=== PATIENT | male | born 1980 | race Hispanic/Latino ===

== ENCOUNTER 2017-09-20 13:25 | Emergency (ER) | payer OTHER ==
[2017-09-20 14:11] LABS: Absolute Lymphocytes (CBC) 1.1 K/uL (0.7-4.9); Absolute Monocytes 0.7 K/uL (0.1-1.3); Absolute Neutrophil 5.5 K/uL (1.8-8.0); Basophils % 0.6 % (0-1.3); Eosinophils % 0.3 % (0-4.4); Hematocrit 49.3 % (39.6-49.0); Lymphocytes % 15.2 % (15.3-44.8); MCH 31.8 pg (27.0-35.0); MCV 93.4 fL (80-100); MPV 10.7 fL (7.6-11.3); Monocytes % 8.9 % (3.3-12.3); RBC Red Blood Cell Count 5.27 M/uL (4.33-5.43)
[2017-09-20] MEDS ORDERED: ONDANSETRON 4 MG/2 ML VIAL ONE (14:16)
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
[2017-09-20 14:22] LABS: Protime INR 1.17
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
[2017-09-20] MEDS ORDERED: LIDOCAINE 2% MPF 5 ML VIAL ONE (14:38)
[2017-09-20 14:49] LABS: ALT/SGPT 43 U/L (12-78); AST/SGOT 68 U/L (15-37); Alkaline Phosphatase 69 U/L (45-117); BUN Blood Urea Nitrogen 20 mg/dL (7-18); Bicarbonate 25 mmol/L (21-32); Bilirubin Direct 0.4 mg/dL (0-0.2); Glucose Level 74 mg/dL (74-106); Potassium 3.7 mmol/L (3.5-5.1); Protein, Total 8.4 g/dL (6.4-8.2); Sodium Level 140 mmol/L (136-145)
[2017-09-20 14:54] LABS: Alcohol Serum/Plasma < 3 mg/dL (0-3)
[2017-09-20 15:34] LABS: Barbiturates NEGATIVE (NEGATIVE); Benzodiazepines NEGATIVE (NEGATIVE); Cocaine NEGATIVE (NEGATIVE); METHAMPHETAM POSITIVE (NEGATIVE); Methadone NEGATIVE (NEGATIVE); Opiates NEGATIVE (NEGATIVE); Phencyclidine NEGATIVE (NEGATIVE); THC Cannibis NEGATIVE (NEGATIVE)
[2017-09-20 15:50] LABS: Urine Blood TRACE (NEG); Urine Glucose NEGATIVE (NEG); Urine Protein 2+ (NEG); Urine Specific Gravity >1.030 (1.005-1.030); Urine pH 5.5 (5.0-7.0)
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
[2017-09-20 17:26] VITALS: TEMP 98.4
[2017-09-20 17:31] VITALS: BP 121/78; O2SAT 99
--- NOTE | 2017-09-21 07:12 | EKG ---
Test Date: 2017-09-20 Test Time: 14:17:03 [employer]: DK MEASUREMENT RESULTS: Intervals: Rate: 60 NC: 146 QRSD: 110 QT: 430 QTc: 430 [place]: P: 80 NC: 146 QRS: 94 T: 54 INTERPRETIVE STATEMENTS: Normal sinus rhythm Rightward axis Borderline ECG Compared to ECG 02/17/2017 14:14:36 No significant changes Electronically Signed On 09-21-17 07:11:46 CDT by Anthony Anders
== END 2017-09-20 17:21 ==
LOC: ER 13:25
PROC: 0JQ10ZZ Repair Face Subcutaneous Tissue and Fascia, Open Approach (ICD-10-PCS; principal; 2017-09-20)
DX: S01.81XA Laceration without foreign body of other part of head, initial encounter (principal); S02.2XXA Fracture of nasal bones, initial encounter for closed fracture; V47.5XXA Car driver injured in collision with fixed or stationary object in traffic accident, initial encounter; F17.210 Nicotine dependence, cigarettes, uncomplicated
CPT/HCPCS: 12015; 36415; 70450; 70486; 71260; 72125; 73620; 74177; 76377; 80048; 80076; 80307 ×8; 80320; 80329 ×2; 81003; 85025; 85610; 85730; 86850; 86900; 86901; 93005; 96374; 99285; J2405; Q9967

== ENCOUNTER 2017-10-16 11:01 | Emergency (ER) | payer OTHER ==
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
[2017-10-16 13:22] VITALS: BP 107/74; TEMP 97.9; O2SAT 99
== END 2017-10-16 13:18 | disposition left against medical advice (07) ==
LOC: ER 11:01
DX: Z53.21 Procedure and treatment not carried out due to patient leaving prior to being seen by health care provider (principal)
CPT/HCPCS: 99281

== ENCOUNTER 2017-12-11 08:44 | Emergency (ER) | payer SELFPAY ==
[2017-12-11] MEDS ORDERED: NA CHLORIDE 0.9% 1,000 ML ONE (09:12)
[2017-12-11] MEDS ORDERED: ONDANSETRON 4 MG/2 ML VIAL ONE (09:12)
[2017-12-11 09:38] LABS: Potassium 4.6 mmol/L (3.5-5.1)
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
--- NOTE | 2017-12-11 10:11 | ER ---
Nurse's Notes [facility] Name: Cholo Salcido Jr Age: 37 yrs Sex: Male : 1980 Arrival Date: 12/11/2017 Time: 08:46 Bed 17 Private MD: None, None Diagnosis: Nausea Presentation: 12/11 08:54 Presenting complaint: Ate food out of the trash 2 nights ago, c/o severe nausea, upper hb abdominal cramping, and V/D. Tolerating liquids. Transition of care: patient was not received from another setting of care. Onset of symptoms was December 09, 2017. Risk Assessment: Do you want to hurt yourself or someone else? Patient reports no desire to harm self or others. Care prior to arrival: None. 08:54 Method Of Arrival: Ambulatory hb 08:54 Acuity: BAM 3 hb 09:35 Initial Sepsis Screen: Does the patient meet any 2 criteria? No. Patient's initial tw2 sepsis screen is negative. Does the patient have a suspected source of infection? No. Patient's initial sepsis screen is negative. Historical: - Allergies: 08:56 No Known Allergies; hb - Home Meds: 08:56 None [Active]; hb - PMHx: 08:56 Anxiety; Pneumonia; Schizophrenia; Seizures; resolved now; synthetic marajuana; states hb no longer uses; - PSHx: 08:56 None; hb - Immunization history:: Adult Immunizations up to date. - Social history:: Smoking status: Patient/guardian denies using tobacco. - Ebola Screening: : No symptoms or risks identified at this time. - Family history:: not pertinent. - Hospitalizations: : No recent hospitalization is reported. Screenin:34 Abuse screen: Denies threats or abuse. Nutritional screening: No deficits noted. tw2 Tuberculosis screening: No symptoms or risk factors identified. Fall Risk None identified. Assessment: 08:52 General: Appears in no apparent distress. unkempt, Behavior is calm, cooperative, tw2 appropriate for age. Pain: Denies pain. Neuro: Level of Consciousness is awake, alert, obeys commands, Oriented to person, place, time, situation. Cardiovascular: Denies chest pain, shortness of breath, Heart tones S1 S2 Capillary refill < 3 seconds Patient's skin is warm and dry. Respiratory: Airway is patent Respiratory effort is even, labored, Breath sounds are clear bilaterally. GI: Abdomen is flat, Bowel sounds present X 4 quads. Reports nausea. : No signs and/or symptoms were reported regarding the genitourinary system. EENT: No signs and/or symptoms were reported regarding the EENT system. Derm: No signs and/or symptoms reported regarding the dermatologic system. Musculoskeletal: Circulation, motion, and sensation intact. Range of motion: intact in all extremities. 09:46 Reassessment: Patient appears in no apparent distress at this time. No changes from tw2 previously documented assessment. Patient and/or family updated on plan of care and expected duration. Pain level reassessed. Patient is alert, oriented x 3, equal unlabored respirations, skin warm/dry/pink. 10:15 Reassessment: Patient finishing IV fluids prior to discharge. aj1 10:52 Reassessment: IV fluids still infusing. Instructed patient to keep his arm straight to aj1 allow fluids to finish infusing. Vital Signs: 08:56 BP 112 / 77; Pulse 58; Resp 16; Temp 97.8; Pulse Ox 100% on R/A; Pain 8/10; hb 09:46 BP 113 / 80; Pulse 66; Resp 17; Pulse Ox 100% on R/A; tw2 ED Course: 08:46 Patient arrived in ED. sb2 08:46 None, None is Private Physician. sb2 08:49 Danny Chacon MD is Attending Physician. rn 08:50 Bed in low position. Call light in reach. Pulse ox on. NIBP on. tw2 08:52 Oralia Oliveira RN is Primary Nurse. tw2 08:55 Triage completed. hb 08:56 Arm band placed on right wrist. hb 09:11 Inserted saline lock: 20 gauge in right antecubital area, using aseptic technique. mw2 Blood collected. 09:50 Report given to SAMANTA Herron. tw2 11:11 No provider procedures requiring assistance completed. IV discontinued, intact, hb bleeding controlled, No redness/swelling at site. Pressure dressing applied. Administered Medications: 09:21 Drug: Zofran 4 mg Route: IVP; Site: right antecubital; tw2 09:40 Follow up: Response: No adverse reaction tw2 09:21 Drug: NS 0.9% 1000 ml Route: IV; Rate: 1000 ml; Site: right antecubital; tw2 Outcome: 10:11 Discharge ordered by . rn 11:11 Discharged to home ambulatory. 11:11 Condition: stable 11:11 Discharge instructions given to patient, Instructed on discharge instructions, follow up and referral plans. medication usage, Demonstrated understanding of instructions, follow-up care, medications, Prescriptions given X 1. 11:11 Patient left the ED. Signatures: Lesley Amos RN RN aj1 Danny Chacon MD MD rn Baxter, Heather, RN RN Oralia Oliveira RN RN tw2 Lorie Davis 2 Tarun Tyler mw2
[2017-12-11 11:17] VITALS: TEMP 97.8; O2SAT 100
[2017-12-11 11:18] VITALS: BP 113/80
== END 2017-12-11 11:11 | disposition home or self-care (01) ==
LOC: ER 08:44
DX: R11.0 Nausea (principal)
CPT/HCPCS: 36415; 80048; 82550; 96374; 99284; J2405; J7030

== ENCOUNTER 2017-12-17 23:25 | Emergency (ER) | payer SELFPAY ==
[2017-12-18] MEDS ORDERED: LORazepam 2 MG/ML VIAL ONE (00:54)
[2017-12-18] MEDS ORDERED: NA CHLORIDE 0.9% 1,000 ML ONE (00:54)
[2017-12-18 01:22] LABS: Absolute Monocytes 1.1 K/uL (0.1-1.3); Absolute Neutrophil 5.7 K/uL (1.8-8.0); Basophils % 0.4 % (0-1.3); Hematocrit 49.1 % (39.6-49.0); Lymphocytes % 22.3 % (15.3-44.8); MCH 31.8 pg (27.0-35.0); MCV 92.6 fL (80-100); MPV 9.8 fL (7.6-11.3); Monocytes % 12.1 % (3.3-12.3); RBC Red Blood Cell Count 5.31 M/uL (4.33-5.43)
[2017-12-18 01:34] LABS: Albumin 4.8 g/dL (3.4-5.0); Bilirubin Direct 0.5 mg/dL (0-0.2); Bilirubin Total 2.3 mg/dL (0.2-1.0); Potassium 3.8 mmol/L (3.5-5.1); Protein, Total 8.7 g/dL (6.4-8.2)
--- NOTE | 2017-12-18 05:00 | EDPHYS ---
Physician Documentation [facility] Name: Cholo Salcido Jr Age: 37 yrs Sex: Male : 1980 Arrival Date: 12/17/2017 Time: 23:26 Bed 26 Private MD: ED Physician Arsalan Orta HPI: 12/18 01:29 This 37 yrs old Male presents to ER via Ambulatory with complaints of Pain All wa Over. 01:29 [address] has been using street drugs the last 2 days and has pain all over. Onset: The wa symptoms/episode began/occurred today. Severity of symptoms: At their worst the symptoms were moderate in the emergency department the symptoms are unchanged. The patient has experienced similar episodes in the past. The patient has not recently seen a physician. denies SI or HI. Historical: - Allergies: 12/17 23:48 No Known Allergies; kr2 - Home Meds: 23:48 Zofran Oral [Active]; kr2 - PMHx: 23:48 Anxiety; Pneumonia; Schizophrenia; Seizures; resolved now; synthetic marajuana; states kr2 no longer uses; - PSHx: 23:48 None; kr2 - Immunization history:: Adult Immunizations unknown. - Social history:: Smoking status: Patient uses tobacco products, smokes one pack cigarettes per day. - Ebola Screening: : No symptoms or risks identified at this time. - Family history:: not pertinent. - Hospitalizations: : No recent hospitalization is reported. ROS: 12/18 01:30 Eyes: Negative for injury, pain, redness, and discharge. wa ENT: Negative for injury, pain, and discharge, Neck: Negative for injury, pain, and swelling, Cardiovascular: Negative for chest pain, palpitations, and edema, Respiratory: Negative for shortness of breath, cough, wheezing, and pleuritic chest pain, Abdomen/GI: Negative for abdominal pain, nausea, vomiting, diarrhea, and constipation, Back: Negative for injury and pain, : Negative for injury, bleeding, discharge, and swelling, Skin: Negative for injury, rash, and discoloration, Neuro: Negative for headache, weakness, numbness, tingling, and seizure. Constitutional: Positive for body aches, Negative for fever, weight loss. MS/extremity: Positive for pain, all over, Negative for rash, swelling, tenderness. All other systems are negative. Exam: 01:31 Constitutional: This is a well developed, well nourished patient who is awake, alert, wa and in no acute distress. Head/Face: Normocephalic, atraumatic. Eyes: Pupils equal round and reactive to light, extra-ocular motions intact. Lids and lashes normal. Conjunctiva and sclera are non-icteric and not injected. Cornea within normal limits. Periorbital areas with no swelling, redness, or edema. ENT: Nares patent. No nasal discharge, no septal abnormalities noted. Tympanic membranes are normal and external auditory canals are clear. Oropharynx with no redness, swelling, or masses, exudates, or evidence of obstruction, uvula midline. Mucous membranes moist. Neck: Trachea midline, no thyromegaly or masses palpated, and no cervical lymphadenopathy. Supple, full range of motion without nuchal rigidity, or vertebral point tenderness. No Meningismus. Chest/axilla: Normal chest wall appearance and motion. Nontender with no deformity. No lesions are appreciated. Cardiovascular: Regular rate and rhythm with a normal S1 and S2. No gallops, murmurs, or rubs. Normal PMI, no JVD. No pulse deficits. Respiratory: Lungs have equal breath sounds bilaterally, clear to auscultation and percussion. No rales, rhonchi or wheezes noted. No increased work of breathing, no retractions or nasal flaring. Abdomen/GI: Soft, non-tender, with normal bowel sounds. No distension or tympany. No guarding or rebound. No evidence of tenderness throughout. Back: No spinal tenderness. No costovertebral tenderness. Full range of motion. Skin: Warm, dry with normal turgor. Normal color with no rashes, no lesions, and no evidence of cellulitis. MS/ Extremity: Pulses equal, no cyanosis. Neurovascular intact. Full, normal range of motion. Neuro: Awake and alert, GCS 15, oriented to person, place, time, and situation. Cranial nerves II-XII grossly intact. Motor strength 5/5 in all extremities. Sensory grossly intact. Cerebellar exam normal. Normal gait. Psych: Awake, alert, with orientation to person, place and time. Behavior, mood, and affect are within normal limits. Vital Signs: 12/17 23:50 BP 112 / 84; Pulse 72; Resp 17; Temp 98.1; Pulse Ox 99% on R/A; Weight 63.5 kg; Height kr2 5 ft. 6 in. (167.64 cm); Pain 12/25; 12/18 00:21 BP 99 / 70; Pulse 67; Pulse Ox 98% ; rv 02:41 BP 92 / 73; Pulse 62; Pulse Ox 100% on R/A; rv 05:12 BP 101 / 65; Pulse 63; Resp 16; Pulse Ox 100% on R/A; aa1 12/17 23:50 Body Mass Index 22.60 (63.50 kg, 167.64 cm) kr2 MDM: 12/17 23:42 Patient medically screened. ca 12/18 01:31 Differential Diagnosis check labs. IVF bolus. ativan. reassess. ca 02:30 Data reviewed: vital signs, nurses notes, lab test result(s). Test interpretation: by ca ED physician or midlevel provider: labs noted for elevated T.bili. 04:57 Response to treatment: the patient's symptoms have markedly improved after treatment. ca ED course: fluids given. counseled against drug use. refused to give urine for analysis during stay in ED. 12/18 00:45 Order name: Basic Metabolic Panel; Complete Time: 02: ca 12/18 00:45 Order name: CBC with Diff; Complete Time: 02: ca 12/18 00:45 Order name: Hepatic Function; Complete Time: 02: ca 12/18 00:45 Order name: IV Saline Lock; Complete Time: 00:58 ca 12/18 00:45 Order name: Labs collected and sent; Complete Time: 00:58 ca Administered Medications: 00:58 Drug: NS 0.9% 1000 ml Route: IV; Rate: 1 bolus; Site: right forearm; rv 00:58 Drug: Ativan 1 mg Route: IVP; Site: right forearm; rv Disposition: 12/18/17 04:59 Discharged to Home. Impression: Generalized Pain, recreational drug abuse. - Condition is Stable. - Discharge Instructions: Stimulant Use Disorder-Methamphetamines. - Medication Reconciliation Form, Thank You Letter, Antibiotic Education, Prescription Opioid Use form. - Follow up: Jacqueline Russell MD; When: 2 - 3 days; Reason: Recheck today's complaints. - Notes: quit using street drugs as they are detrimental to your health. see the primary doctor prescribed you for further care Signatures: Dispatcher [employer] EDJennifer Dockery RN RN aa1 Arsalan Orta MD MD wa Reaves, Karey, RN RN kr2 Bud Staples RN RN rv Corrections: (The following items were deleted from the chart) 05:14 04:59 12/18/2017 04:59 Discharged to Home. Impression: Generalized Pain; recreational aa1 drug abuse. Condition is Stable. Forms are Medication Reconciliation Form, Thank You Letter, Antibiotic Education, Prescription Opioid Use. Follow up: A Russell; When: 2 - 3 days; Reason: Recheck today's complaints. mey
--- NOTE | 2017-12-18 05:00 | ER ---
Nurse's Notes [facility] Name: Cholo Salcido Jr Age: 37 yrs Sex: Male : 1980 Arrival Date: 12/17/2017 Time: 23:26 Bed 26 Private MD: Diagnosis: Generalized Pain;recreational drug abuse Presentation: 12/17 23:46 Presenting complaint: Patient states: "I am having cramping pain all over my body, I kr2 tried making sure I am drinking plenty of water and eating right". Transition of care: patient was not received from another setting of care. Onset of symptoms was December 17, 2017. Risk Assessment: Do you want to hurt yourself or someone else? Patient reports no desire to harm self or others. Initial Sepsis Screen: Does the patient meet any 2 criteria? No. Patient's initial sepsis screen is negative. Does the patient have a suspected source of infection? No. Patient's initial sepsis screen is negative. Care prior to arrival: None. 23:46 Method Of Arrival: Ambulatory kr2 23:46 Acuity: BAM 4 kr2 Triage Assessment: 23:48 General: Appears in no apparent distress. comfortable, slender, well developed, kr2 Behavior is calm, cooperative. Pain: Complains of pain in entire body Pain does not radiate. Pain currently is 10 out of 10 on a pain scale. Quality of pain is described as aching, crampy, Is continuous, Alleviated by rest. Neuro: Level of Consciousness is awake, alert, Oriented to person, place, time, situation. Cardiovascular: Capillary refill < 3 seconds in bilateral fingers Patient's skin is warm and dry. Respiratory: Airway is patent Respiratory effort is even, unlabored, Respiratory pattern is regular, symmetrical. Derm: Skin is intact, is healthy with good turgor, Skin is pink, warm \\T\\ dry. Musculoskeletal: Circulation, motion, and sensation intact. Historical: - Allergies: 23:48 No Known Allergies; kr2 - Home Meds: 23:48 Zofran Oral [Active]; kr2 - PMHx: 23:48 Anxiety; Pneumonia; Schizophrenia; Seizures; resolved now; synthetic marajuana; states kr2 no longer uses; - PSHx: 23:48 None; kr2 - Immunization history:: Adult Immunizations unknown. - Social history:: Smoking status: Patient uses tobacco products, smokes one pack cigarettes per day. - Ebola Screening: : No symptoms or risks identified at this time. - Family history:: not pertinent. - Hospitalizations: : No recent hospitalization is reported. Screenin:52 Abuse screen: Denies threats or abuse. Denies injuries from another. Nutritional kr2 screening: No deficits noted. Tuberculosis screening: No symptoms or risk factors identified. Fall Risk Gait- Impaired (20 pts.). Assessment: 12/18 00:20 General: Appears in no apparent distress. comfortable, Behavior is calm, cooperative. rv Pain: Complains of pain in GENERALIZED. Neuro: Level of Consciousness is awake, alert, obeys commands, Oriented to person, place, time, situation. Cardiovascular: Capillary refill < 3 seconds. Respiratory: Airway is patent. GI: No signs and/or symptoms were reported involving the gastrointestinal system. : No signs and/or symptoms were reported regarding the genitourinary system. EENT: No signs and/or symptoms were reported regarding the EENT system. Derm: Skin is intact. 02:41 Reassessment: Patient appears in no apparent distress at this time. Patient and/or rv family updated on plan of care and expected duration. Pain level reassessed. Patient is alert, oriented x 3, equal unlabored respirations, skin warm/dry/pink. 05:12 Reassessment: Patient appears in no apparent distress at this time. Patient is alert, aa1 oriented x 3, equal unlabored respirations, skin warm/dry/pink. Pt alert enough to d/c at this time. Discussed d/c \\T\\ f/u instructions with pt; denies questions or concerns at this time Patient states feeling better. Vital Signs: 12/17 23:50 BP 112 / 84; Pulse 72; Resp 17; Temp 98.1; Pulse Ox 99% on R/A; Weight 63.5 kg; Height kr2 5 ft. 6 in. (167.64 cm); Pain 12/25; 12/18 00:21 BP 99 / 70; Pulse 67; Pulse Ox 98% ; rv 02:41 BP 92 / 73; Pulse 62; Pulse Ox 100% on R/A; rv 05:12 BP 101 / 65; Pulse 63; Resp 16; Pulse Ox 100% on R/A; aa1 12/17 23:50 Body Mass Index 22.60 (63.50 kg, 167.64 cm) kr2 ED Course: 12/17 23:26 Patient arrived in ED. ds1 23:42 Arsalan Orta MD is Attending Physician. 23:46 Triage completed. kr2 23:52 Arm band placed on. kr2 23:52 Patient has correct armband on for positive identification. Bed in low position. Call kr2 light in reach. Side rails up X 1. Pulse ox on. NIBP on. Door closed. Lights dimmed. Warm blanket given. Head of bed elevated. 12/18 00:59 Initial lab(s) drawn, by me, sent to lab. Inserted saline lock: 18 gauge in right rv forearm, using aseptic technique. Blood collected. 04:58 Jacqueline Russell MD is Referral Physician. wa 05:12 No provider procedures requiring assistance completed. IV discontinued, intact, aa1 bleeding controlled, No redness/swelling at site. Pressure dressing applied. Administered Medications: 00:58 Drug: NS 0.9% 1000 ml Route: IV; Rate: 1 bolus; Site: right forearm; rv 00:58 Drug: Ativan 1 mg Route: IVP; Site: right forearm; rv Outcome: 04:59 Discharge ordered by MD. wa 05:12 Discharged to home ambulatory. aa1 05:12 Condition: good 05:12 Discharge instructions given to patient, Instructed on discharge instructions, follow up and referral plans. Demonstrated understanding of instructions, follow-up care. 05:14 Patient left the ED. aa1 Signatures: Jennifer Gray RN RN aa1 Mariposa Kruse ds1 Arsalan Orta MD MD pr Alvina Holley RN RN kr2 Bud Staples RN RN rv
[2017-12-18 05:18] VITALS: TEMP 98.1
[2017-12-18 05:20] VITALS: O2SAT 100
[2017-12-18 05:22] VITALS: BP 101/65
== END 2017-12-18 05:14 | disposition home or self-care (01) ==
LOC: ER 23:25
DX: F19.10 Other psychoactive substance abuse, uncomplicated (principal); F17.210 Nicotine dependence, cigarettes, uncomplicated
CPT/HCPCS: 36415; 80048; 80076; 85025; 96374; 99284; J7030

== ENCOUNTER 2018-01-16 17:20 | Emergency (ER) | payer OTHER ==
--- NOTE | 2018-01-16 19:11 | ER ---
Nurse's Notes [facility] Name: Cholo Salcido Jr Age: 37 yrs Sex: Male : 1980 Arrival Date: 01/16/2018 Time: 17:23 Bed 16 Private MD: None, None Diagnosis: Epididymal cyst Presentation: 01/16 17:52 Presenting complaint: Patient states: "I feel like someone tied a rope around my balls sv and it feels like my penis is pressure." Reports "a ball on the shaft of my penis.". Transition of care: patient was not received from another setting of care. Onset of symptoms was January 16, 2018. Care prior to arrival: None. 17:52 Method Of Arrival: Ambulatory sv 17:52 Acuity: BAM 4 sv 19:15 Risk Assessment: Do you want to hurt yourself or someone else? Patient reports no cc3 desire to harm self or others. Initial Sepsis Screen: Does the patient meet any 2 criteria? No. Patient's initial sepsis screen is negative. Does the patient have a suspected source of infection? No. Patient's initial sepsis screen is negative. Triage Assessment: 17:57 General: Appears in no apparent distress. comfortable, Behavior is cooperative, bp appropriate for age, agitated. Pain: Complains of pain in groin. Historical: - Allergies: 17:54 No Known Allergies; sv - Home Meds: 19:15 Zofran Oral [Active]; cc3 - PMHx: 17:54 Anxiety; Pneumonia; Schizophrenia; Seizures; resolved now; synthetic marajuana; states sv no longer uses; - PSHx: 17:54 None; sv - Immunization history:: Adult Immunizations up to date. - Social history:: Smoking status: Patient uses tobacco products, smokes one-half pack cigarettes per day. - Ebola Screening: : No symptoms or risks identified at this time. Screenin:58 Abuse screen: Denies threats or abuse. Denies injuries from another. Nutritional bp screening: No deficits noted. Tuberculosis screening: No symptoms or risk factors identified. Fall Risk None identified. Assessment: 17:59 General: Appears in no apparent distress. uncomfortable, Behavior is cooperative, bp appropriate for age, agitated. Pain: Complains of pain in groin. Neuro: Level of Consciousness is awake, alert, obeys commands, Oriented to person, place, time, situation, Appropriate for age. Cardiovascular: No deficits noted. Respiratory: Airway is patent Respiratory effort is even, unlabored, Respiratory pattern is regular, symmetrical. GI: No signs and/or symptoms were reported involving the gastrointestinal system. : Reports PENILE PAIN. EENT: No signs and/or symptoms were reported regarding the EENT system. Derm: No signs and/or symptoms reported regarding the dermatologic system. Musculoskeletal: Circulation, motion, and sensation intact. Range of motion: intact in all extremities. 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 bp 19:15 Reassessment: Patient appears in no apparent distress at this time. Patient and/or cc3 family updated on plan of care and expected duration. Pain level reassessed. Patient is alert, oriented x 3, equal unlabored respirations, skin warm/dry/pink. Received patient from morning shift SAMANTA Fernandez as a case of penile problem. No IV cannula in situ. 20:00 Reassessment: Patient appears in no apparent distress at this time. Patient and/or cc3 family updated on plan of care and expected duration. Pain level reassessed. Patient is alert, oriented x 3, equal unlabored respirations, skin warm/dry/pink. MICHAEL Thakur discharged home the patient with prescription given. No IV cannula in situ. Patient left ER vitally stable and ambulatory. Vital Signs: 17:54 BP 120 / 88; Pulse 65; Resp 18; Temp 97.8; Pulse Ox 100% ; Weight 63.5 kg; Height 5 ft. sv (152.40 cm); Pain 5/10; 19:35 BP 119 / 87; Pulse 67; Resp 17 S; Temp 97.9(O); Pulse Ox 100% on R/A; cc3 17:54 Body Mass Index 27.34 (63.50 kg, 152.40 cm) sv ED Course: 17:23 Patient arrived in ED. mr 17:23 None, None is Private Physician. mr 17:27 Patient's name was called from ER lobby. No response. sv 17:45 Patient's name was called from ER lobby. No response. sv 17:54 Triage completed. sv 17:57 Jim Lion, RN is Primary Nurse. bp 17:58 Patient has correct armband on for positive identification. Bed in low position. Call bp light in reach. Side rails up X2. 18:19 Ofe Ndiaye [facility]-C [facility]. snw 18:19 Danny Chacon MD is Attending Physician. snw 19:00 US Scrotum Testicles In Process Unspecified. EDMS 19:09 Riky Hubbard MD is Referral Physician. snw 19:15 Arm band placed on right wrist. Patient notified of wait time. cc3 20:00 No provider procedures requiring assistance completed. Patient did not have IV access cc3 during this emergency room visit. Administered Medications: 19:20 Drug: Zithromax 1 grams Route: PO; cc3 20:00 Follow up: Response: No adverse reaction cc3 19:30 Drug: Rocephin (cefTRIAXone) 1 grams Route: IM; Site: left gluteus; cc3 20:00 Follow up: Response: No adverse reaction cc3 Outcome: 19:10 Discharge ordered by MD. snw 20:00 Discharged to home ambulatory. cc3 20:00 Condition: stable 20:00 Discharge instructions given to patient, Instructed on discharge instructions, follow up and referral plans. medication usage, Demonstrated understanding of instructions, follow-up care, medications, Prescriptions given X 1. 20:16 Patient left the ED. cc3 Signatures: Dispatcher [employer] Casandra Mirza, RN RN Ofe Weiss FNP-C FNP-[facility] Pal[place] AyadJim, SAMANTA RN Marika Pardo cc3 Corrections: (The following items were deleted from the chart) 17:56 17:54 Pulse 65bpm; Resp 18bpm; Pulse Ox 100%; Temp 97.8F; 63.5 kg; Height 5 ft.; BMI: sv 27.3; Pain 5/10; sv 23:26 20:00 IV discontinued, intact, bleeding controlled, No redness/swelling at site. cc3 Pressure dressing applied, cc3
--- NOTE | 2018-01-16 19:11 | EDPHYS ---
Physician Documentation [facility] Name: Cholo Salcido Jr Age: 37 yrs Sex: Male : 1980 Arrival Date: 01/16/2018 Time: 17:23 Bed 16 Private MD: None, None ED Physician Danny Chacon HPI: 01/16 19:16 This 37 yrs old Male presents to ER via Ambulatory with complaints of Penile snw Problem. 19:16 The patient presents with scrotal pain, of both sides. Onset: The symptoms/episode snw began/occurred suddenly. Modifying factors: The symptoms are alleviated by nothing, the symptoms are aggravated by sexual intercourse. Severity of symptoms: At their worst the symptoms were moderate. It is unknown whether or not the patient has had similar symptoms in the past. The patient has not recently seen a physician. Historical: - Allergies: 17:54 No Known Allergies; sv - Home Meds: 19:15 Zofran Oral [Active]; cc3 - PMHx: 17:54 Anxiety; Pneumonia; Schizophrenia; Seizures; resolved now; synthetic marajuana; states sv no longer uses; - PSHx: 17:54 None; sv - Immunization history:: Adult Immunizations up to date. - Social history:: Smoking status: Patient uses tobacco products, smokes one-half pack cigarettes per day. - Ebola Screening: : No symptoms or risks identified at this time. ROS: 19:14 Constitutional: Negative for fever, chills, and weight loss, Eyes: Negative for injury, snw pain, redness, and discharge, ENT: Negative for injury, pain, and discharge, Neck: Negative for injury, pain, and swelling, Cardiovascular: Negative for chest pain, palpitations, and edema, Respiratory: Negative for shortness of breath, cough, wheezing, and pleuritic chest pain, Abdomen/GI: Negative for abdominal pain, nausea, vomiting, diarrhea, and constipation, Back: Negative for injury and pain, MS/Extremity: Negative for injury and deformity, Skin: Negative for injury, rash, and discoloration, Neuro: Negative for headache, weakness, numbness, tingling, and seizure. 19:14 : Positive for scrotal pressure, STI exposure per report. Exam: 19:14 Constitutional: This is a well developed, well nourished patient who is awake, alert, snw and in no acute distress. Head/Face: Normocephalic, atraumatic. Eyes: Pupils equal round and reactive to light, extra-ocular motions intact. Lids and lashes normal. Conjunctiva and sclera are non-icteric and not injected. Cornea within normal limits. Periorbital areas with no swelling, redness, or edema. ENT: Nares patent. No nasal discharge, no septal abnormalities noted. Tympanic membranes are normal and external auditory canals are clear. Oropharynx with no redness, swelling, or masses, exudates, or evidence of obstruction, uvula midline. Mucous membranes moist. Neck: Trachea midline, no thyromegaly or masses palpated, and no cervical lymphadenopathy. Supple, full range of motion without nuchal rigidity, or vertebral point tenderness. No Meningismus. Chest/axilla: Normal chest wall appearance and motion. Nontender with no deformity. No lesions are appreciated. Cardiovascular: Regular rate and rhythm with a normal S1 and S2. No gallops, murmurs, or rubs. Normal PMI, no JVD. No pulse deficits. Respiratory: Lungs have equal breath sounds bilaterally, clear to auscultation and percussion. No rales, rhonchi or wheezes noted. No increased work of breathing, no retractions or nasal flaring. Abdomen/GI: Soft, non-tender, with normal bowel sounds. No distension or tympany. No guarding or rebound. No evidence of tenderness throughout. Back: No spinal tenderness. No costovertebral tenderness. Full range of motion. Skin: Warm, dry with normal turgor. Normal color with no rashes, no lesions, and no evidence of cellulitis. MS/ Extremity: Pulses equal, no cyanosis. Neurovascular intact. Full, normal range of motion. Neuro: Awake and alert, GCS 15, oriented to person, place, time, and situation. Cranial nerves II-XII grossly intact. Motor strength 5/5 in all extremities. Sensory grossly intact. Cerebellar exam normal. Normal gait. Psych: Awake, alert, with orientation to person, place and time. Behavior, mood, and affect are within normal limits. Vital Signs: 17:54 BP 120 / 88; Pulse 65; Resp 18; Temp 97.8; Pulse Ox 100% ; Weight 63.5 kg; Height 5 ft. sv (152.40 cm); Pain 5/10; 19:35 BP 119 / 87; Pulse 67; Resp 17 S; Temp 97.9(O); Pulse Ox 100% on R/A; cc3 17:54 Body Mass Index 27.34 (63.50 kg, 152.40 cm) sv MDM: 01/16 18:19 Order name: Scrotum Testicles; Complete Time: 19:32 snw MDM: 18:19 Patient medically screened. snw 19:15 Data reviewed: vital signs, nurses notes. Data interpreted: Pulse oximetry: on room air snw is 100 %. Interpretation: normal. Counseling: I had a detailed discussion with the patient and/or guardian regarding: the historical points, exam findings, and any diagnostic results supporting the discharge/admit diagnosis, the presence of at least one elevated blood pressure reading (>120/80) during this emergency department visit, radiology results, the need for outpatient follow up, to return to the emergency department if symptoms worsen or persist or if there are any questions or concerns that arise at home. Special discussion: I have referred the patient to see his PCP for further evaluation of high blood pressure. Based on the history and exam findings, there is no indication for further emergent testing or inpatient evaluation. I discussed with the patient/guardian the need to see the primary care provider for further evaluation of the symptoms. I discussed with the patient/guardian the need to see the urologist for further evaluation of the symptoms. 01/16 18:19 Order name: Scrotum Testicles; Complete Time: 19:32 snw Administered Medications: 19:20 Drug: Zithromax 1 grams Route: PO; cc3 20:00 Follow up: Response: No adverse reaction cc3 19:30 Drug: Rocephin (cefTRIAXone) 1 grams Route: IM; Site: left gluteus; cc3 20:00 Follow up: Response: No adverse reaction cc3 Disposition: 01/17 07:13 Co-signature as Attending Physician, Danny Chacon MD. rn Disposition: 01/16/18 19:10 Discharged to Home. Impression: Epididymal cyst. - Condition is Stable. - Discharge Instructions: Scrotal Swelling. - Prescriptions for Motrin IB 200 mg Oral Tablet - take 1 tablet by ORAL route every 6 hours As needed as needed with food; 40 tablet. - Medication Reconciliation Form, Thank You Letter, Antibiotic Education, Prescription Opioid Use form. - Follow up: Riky Hubbard MD; When: 1 week; Reason: Recheck today's complaints, Continuance of care. Follow up: Private Physician; When: 2 - 3 days; Reason: Recheck today's complaints, Continuance of care, Re-evaluation by your physician. Signatures: Dispatcher [employer] Casandra Mirza RN RN Ofe Weiss, ANTENNA MACHINE OPERATOR-C ANTENNA MACHINE OPERATOR-Csnw Danny Chacon MD MD rn Cordel, Charlene cc3 Corrections: (The following items were deleted from the chart) 01/16 20:16 19:10 01/16/2018 19:10 Discharged to Home. Impression: Epididymal cyst. Condition is cc3 Stable. Forms are Medication Reconciliation Form, Thank You Letter, Antibiotic Education, Prescription Opioid Use. Follow up: Riky Hubbard; When: 1 week; Reason: Recheck today's complaints, Continuance of care. Follow up: Private Physician; When: 2 - 3 days; Reason: Recheck today's complaints, Continuance of care, Re-evaluation by your physician. snw
--- NOTE | 2018-01-16 19:28 | RAD REPORT ---
EXAM DESCRIPTION: US - Scrotum Testicles - 01/16/2018 6:59 pm CLINICAL HISTORY: Scrotal pain and swelling, patient provided history of right testicular trauma 1-2 weeks earlier Preliminary findings provided at the time of the study. COMPARISON: None. FINDINGS: Testicular tissue is homogeneous. No focal testicular lesion identifiable. Doppler evaluat ion shows a normal, symmetric blood flow pattern within each testicle. No epididymis enlargement or h yperemia. A small 5 mm right epididymal cyst present. No extratesticular hematoma or mass. Trace hydr oceles are present. IMPRESSION: No focal testicular abnormality. No hematoma, mass or other suspicious finding.
[2018-01-16] MEDS ORDERED: CEFTRIAXONE 1000 MG/VIAL ONE (19:32)
[2018-01-16] MEDS ORDERED: AZITHROMYCIN 250 MG TAB ONE (19:32)
[2018-01-16] MEDS ORDERED: WATER FOR INJ,STERILE 10 ML ONE (19:32)
[2018-01-16 20:40] VITALS: BP 120/88; TEMP 97.8; O2SAT 100
== END 2018-01-16 20:16 | disposition home or self-care (01) ==
LOC: ER 17:20
DX: N50.3 Cyst of epididymis (principal); F17.210 Nicotine dependence, cigarettes, uncomplicated
CPT/HCPCS: 76870; 96372; 99283

== ENCOUNTER 2018-02-23 15:26 | Emergency (ER) | payer OTHER ==
--- NOTE | 2018-02-23 16:26 | ER ---
Nurse's Notes [facility] Name: Cholo Salcido Jr Age: 37 yrs Sex: Male : 1980 Arrival Date: 02/23/2018 Time: 15:28 Bed Waiting Private MD: Diagnosis: Assessment: 02/23 16:06 Reassessment: called to triage, no answer. Unable to locate patient in ER lobby and/or aj parking lot. ED Course: 15:24 Patient's name was called from ER lobby. No response. aj 15:28 Patient arrived in ED. as 16:07 Patient's name was called from ER lobby. No response. aj 16:25 Patient's name was called from ER lobby. No response. ss Administered Medications: No medications were administered Outcome: 16:26 Patient left the ED. ss Signatures: Tracy Cheatham, RN RN Laila Gray Shelby, RN RN ss
== END 2018-02-23 16:26 | disposition left against medical advice (07) ==
LOC: ER 15:26
DX: Z53.21 Procedure and treatment not carried out due to patient leaving prior to being seen by health care provider (principal)

== ENCOUNTER 2018-07-30 00:53 | Emergency (ER) | payer SELFPAY ==
[2018-07-30] MEDS ORDERED: ACETAMINOPHEN 500 MG TAB ONE (01:49)
[2018-07-30 02:10] LABS: Urine Amorphous Sediment 3+ /HPF (NONE SEEN); Urine Bacteria <20 /HPF (NONE SEEN); Urine Culture Reflex Order NOT NEEDED; Urine RBC NONE SEEN /HPF (NONE SEEN)
[2018-07-30 02:11] LABS: Urine Blood NEGATIVE (NEG); Urine Glucose NEGATIVE (NEG); Urine Protein NEGATIVE (NEG)
--- NOTE | 2018-07-30 02:39 | EDPHYS ---
Physician Documentation [facility] Name: Cholo Salcido Jr Age: 38 yrs Sex: Male : 1980 Arrival Date: 07/30/2018 Time: 00:55 Bed 6 Private MD: ED Physician Arsalan Orta HPI: 07/30 02:28 This 38 yrs old Male presents to ER via Ambulatory with complaints of wa Congestion. 02:28 states feeling hot and cold at work. also "congestion" at the top of upper abdomen. wa states coughed up a bunch of mucous. . Onset: The symptoms/episode began/occurred today. Severity of symptoms: At their worst the symptoms were moderate in the emergency department the symptoms are unchanged. The patient has not experienced similar symptoms in the past. The patient has not recently seen a physician. pt with vague complaints of discomfort that is on-going tonight. noted for body aches as well as feeling hot and cold. denies KHANNA. denies SOB. denies abd pain or roger vomiting. Historical: - Allergies: 01:11 No Known Allergies; jd3 - Home Meds: 01:11 None [Active]; jd3 - PMHx: 01:11 Anxiety; Pneumonia; Schizophrenia; Seizures; resolved now; synthetic marajuana; states jd3 no longer uses; - PSHx: 01:11 None; jd3 - Immunization history:: Adult Immunizations up to date. - Social history:: Smoking status: Patient/guardian denies using tobacco. - Ebola Screening: : Patient negative for fever greater than or equal to 101.5 degrees Fahrenheit, and additional compatible Ebola Virus Disease symptoms. - Family history:: not pertinent. - Hospitalizations: : No recent hospitalization is reported. ROS: 02:31 Eyes: Negative for injury, pain, redness, and discharge, ENT: Negative for injury, wa pain, and discharge, Neck: Negative for injury, pain, and swelling, Cardiovascular: Negative for chest pain, palpitations, and edema, Respiratory: Negative for shortness of breath, cough, wheezing, and pleuritic chest pain, Back: Negative for injury and pain, : Negative for injury, bleeding, discharge, and swelling, MS/Extremity: Negative for injury and deformity, Skin: Negative for injury, rash, and discoloration, Neuro: Negative for headache, weakness, numbness, tingling, and seizure, Psych: Negative for depression, anxiety, suicide ideation, homicidal ideation, and hallucinations. 02:31 Constitutional: Positive for body aches, chills, Negative for poor PO intake, weight loss. 02:31 Abdomen/GI: Positive for pain upper abd with deep breath. Exam: 02:32 Constitutional: This is a well developed, well nourished patient who is awake, alert, wa and in no acute distress. Head/Face: Normocephalic, atraumatic. Eyes: Pupils equal round and reactive to light, extra-ocular motions intact. Lids and lashes normal. Conjunctiva and sclera are non-icteric and not injected. Cornea within normal limits. Periorbital areas with no swelling, redness, or edema. ENT: Nares patent. No nasal discharge, no septal abnormalities noted. Tympanic membranes are normal and external auditory canals are clear. Oropharynx with no redness, swelling, or masses, exudates, or evidence of obstruction, uvula midline. Mucous membranes moist. Neck: Trachea midline, no thyromegaly or masses palpated, and no cervical lymphadenopathy. Supple, full range of motion without nuchal rigidity, or vertebral point tenderness. No Meningismus. Chest/axilla: Normal chest wall appearance and motion. Nontender with no deformity. No lesions are appreciated. Cardiovascular: Regular rate and rhythm with a normal S1 and S2. No gallops, murmurs, or rubs. Normal PMI, no JVD. No pulse deficits. Respiratory: Lungs have equal breath sounds bilaterally, clear to auscultation and percussion. No rales, rhonchi or wheezes noted. No increased work of breathing, no retractions or nasal flaring. Abdomen/GI: Soft, non-tender, with normal bowel sounds. No distension or tympany. No guarding or rebound. No evidence of tenderness throughout. Back: No spinal tenderness. No costovertebral tenderness. Full range of motion. Skin: Warm, dry with normal turgor. Normal color with no rashes, no lesions, and no evidence of cellulitis. MS/ Extremity: Pulses equal, no cyanosis. Neurovascular intact. Full, normal range of motion. Neuro: Awake and alert, GCS 15, oriented to person, place, time, and situation. Cranial nerves II-XII grossly intact. Motor strength 5/5 in all extremities. Sensory grossly intact. Cerebellar exam normal. Normal gait. Psych: Awake, alert, with orientation to person, place and time. Behavior, mood, and affect are within normal limits. Vital Signs: 01:11 BP 121 / 82; Pulse 78; Resp 17 S; Temp 98.0(O); Pulse Ox 100% on R/A; Weight 63.5 kg jd3 (R); Height 5 ft. 6 in. (167.64 cm) (R); Pain 8/10; 02:00 BP 108 / 73; Pulse 70; Resp 16 S; Pulse Ox 100% on R/A; jd3 01:11 Body Mass Index 22.60 (63.50 kg, 167.64 cm) jd3 MDM: 01:08 Patient medically screened. nd 02:32 Differential Diagnosis flu, vague symptoms. otherwise nml exam. will check flu screen wa and UA. will reassess. Data reviewed: vital signs, nurses notes. 02:33 Test interpretation: by ED physician or midlevel provider: UA noted wnl. negative flu wa screen. Response to treatment: the patient's symptoms have markedly improved after treatment. 07/30 01:31 Order name: Flu; Complete Time: 02:17 nd 07/30 01:31 Order name: Urine Microscopic Only; Complete Time: 02:17 nd 07/30 01:31 Order name: Urine Dipstick-Ancillary (obtain specimen); Complete Time: 01:46 nd 07/30 02:00 Order name: Urine Dipstick--Ancillary (enter results); Complete Time: 02:17 ar5 Administered Medications: 01:46 Drug: Tylenol 1000 mg Route: PO; jd3 02:52 Follow up: Response: No adverse reaction jd3 Disposition: 07/30/18 02:39 Discharged to Home. Impression: Congestion. - Condition is Stable. - Prescriptions for cetirizine 10 mg Oral tablet - take 1 tablet by ORAL route once daily; 10 tablet. - Medication Reconciliation Form, Thank You Letter, Antibiotic Education, Prescription Opioid Use form. - Follow up: Private Physician; When: 2 - 3 days; Reason: Re-evaluation by your physician. - Problem is new. - Symptoms have improved. Signatures: Dispatcher [employer] EDMS Arsalan Orta MD MD wa Davies, Jonathon RN RN jd3 Corrections: (The following items were deleted from the chart) 01:32 01:31 UA MICROSCOPIC+U.LAB.BRZ ordered. EDLA EDMS 02:52 02:39 07/30/2018 02:39 Discharged to Home. Impression: Congestion. Condition is Stable. jd3 Forms are Medication Reconciliation Form, Thank You Letter, Antibiotic Education, Prescription Opioid Use. Follow up: Private Physician; When: 2 - 3 days; Reason: Re-evaluation by your physician. Problem is new. Symptoms have improved. mey
--- NOTE | 2018-07-30 02:39 | ER ---
Nurse's Notes [facility] Name: Cholo Salcido Jr Age: 38 yrs Sex: Male : 1980 Arrival Date: 07/30/2018 Time: 00:55 Bed 6 Private MD: Diagnosis: Congestion Presentation: 07/30 01:05 Presenting complaint: Patient states: "I was at work and I started to feel like I had jd3 excessive mucus and choked. I felt short of breath and I had a sharp pain under my left arm. now I just have like general pain all over and body aches.". Transition of care: patient was not received from another setting of care. Resp Distress? No respiratory distress is noted at this time. Onset of symptoms was July 29, 2018. Risk Assessment: Do you want to hurt yourself or someone else? Patient reports no desire to harm self or others. Initial Sepsis Screen: Does the patient meet any 2 criteria? No. Patient's initial sepsis screen is negative. Does the patient have a suspected source of infection? No. Patient's initial sepsis screen is negative. Care prior to arrival: None. 01:05 Method Of Arrival: Ambulatory jd3 01:05 Acuity: BAM 4 jd3 Historical: - Allergies: 01:11 No Known Allergies; jd3 - Home Meds: 01:11 None [Active]; jd3 - PMHx: 01:11 Anxiety; Pneumonia; Schizophrenia; Seizures; resolved now; synthetic marajuana; states jd3 no longer uses; - PSHx: 01:11 None; jd3 - Immunization history:: Adult Immunizations up to date. - Social history:: Smoking status: Patient/guardian denies using tobacco. - Ebola Screening: : Patient negative for fever greater than or equal to 101.5 degrees Fahrenheit, and additional compatible Ebola Virus Disease symptoms. - Family history:: not pertinent. - Hospitalizations: : No recent hospitalization is reported. Screenin:13 Abuse screen: Denies threats or abuse. Nutritional screening: No deficits noted. jd3 Tuberculosis screening: No symptoms or risk factors identified. Fall Risk Ambulatory Aid- None/Bed Rest/Nurse Assist (0 pts). Gait- Normal/Bed Rest/Wheelchair (0 pts) Mental Status- Oriented to own ability (0 pts). Total Duran Fall Scale indicates No Risk (0-24 pts). Assessment: 01:12 General: Appears in no apparent distress. uncomfortable, Behavior is calm, cooperative, jd3 appropriate for age, anxious. Pain: Complains of pain in generalized Quality of pain is described as aching. Neuro: Level of Consciousness is awake, alert, obeys commands, Oriented to person, place, time, situation, Appropriate for age. Cardiovascular: Heart tones S1 S2 present Capillary refill < 3 seconds Patient's skin is warm and dry. Respiratory: Airway is patent Respiratory effort is even, unlabored, Respiratory pattern is regular, symmetrical, Breath sounds are clear bilaterally. GI: Abdomen is non-distended, Bowel sounds present X 4 quads. Abd is soft and non tender X 4 quads. Reports nausea. : No signs and/or symptoms were reported regarding the genitourinary system. EENT: No signs and/or symptoms were reported regarding the EENT system. Derm: Skin is intact, Skin is dry, Skin is normal, Skin temperature is warm. Musculoskeletal: Circulation, motion, and sensation intact. Range of motion: intact in all extremities. 02:24 Reassessment: Patient appears in no apparent distress at this time. Patient and/or jd3 family updated on plan of care and expected duration. Pain level reassessed. Patient is alert, oriented x 3, equal unlabored respirations, skin warm/dry/pink. 02:49 Reassessment: Patient appears in no apparent distress at this time. Patient and/or jd3 family updated on plan of care and expected duration. Pain level reassessed. Patient is alert, oriented x 3, equal unlabored respirations, skin warm/dry/pink. pt left before signing discharge paperwork. Vital Signs: 01:11 BP 121 / 82; Pulse 78; Resp 17 S; Temp 98.0(O); Pulse Ox 100% on R/A; Weight 63.5 kg jd3 (R); Height 5 ft. 6 in. (167.64 cm) (R); Pain 8/10; 02:00 BP 108 / 73; Pulse 70; Resp 16 S; Pulse Ox 100% on R/A; jd3 01:11 Body Mass Index 22.60 (63.50 kg, 167.64 cm) d3 ED Course: 00:55 Patient arrived in ED. es 01:04 Hiram Yusuf, RN is Primary Nurse. jd3 01:08 Arsalan Orta MD is Attending Physician. in 01:09 Triage completed. jd3 01:12 Arm band placed on. jd3 01:14 Patient has correct armband on for positive identification. Bed in low position. Call jd3 light in reach. Side rails up X 1. 02:48 No provider procedures requiring assistance completed. Patient did not have IV access jd3 during this emergency room visit. Administered Medications: 01:46 Drug: Tylenol 1000 mg Route: PO; jd3 02:52 Follow up: Response: No adverse reaction jd3 Outcome: 02:39 Discharge ordered by . wa 02:48 Discharged to home ambulatory, pt left before signing discharge paperwork. jd3 02:48 Condition: stable 02:48 Discharge instructions given to patient, Instructed on follow up and referral plans. Demonstrated understanding of instructions. 02:52 Patient left the ED. jd3 Signatures: Laurie Travis William, MD MD wa Davies, Jonathon, RN RN jd3
[2018-07-30 15:31] VITALS: TEMP 98; O2SAT 100
[2018-07-30 15:33] VITALS: BP 108/73
== END 2018-07-30 02:52 | disposition home or self-care (01) ==
LOC: ER 00:53
DX: R09.89 Other specified symptoms and signs involving the circulatory and respiratory systems (principal); F41.9 Anxiety disorder, unspecified; F20.9 Schizophrenia, unspecified
CPT/HCPCS: 81003; 81015; 87804; 99283

== ENCOUNTER 2018-11-13 17:04 | Emergency (ER) | payer OTHER ==
[2018-11-13 19:08] LABS: Absolute Lymphocytes (CBC) 1.7 K/uL (0.7-4.9); Basophils % 0.6 % (0-1.3); Hematocrit 45.4 % (39.6-49.0); Lymphocytes % 29.9 % (15.3-44.8); MPV 9.8 fL (7.6-11.3); RBC Red Blood Cell Count 4.91 M/uL (4.33-5.43)
[2018-11-13 19:20] LABS: Albumin 4.8 g/dL (3.4-5.0); Bilirubin Direct 0.4 mg/dL (0-0.2); Bilirubin Total 1.9 mg/dL (0.2-1.0); Potassium 3.5 mmol/L (3.5-5.1); Protein, Total 8.3 g/dL (6.4-8.2)
[2018-11-13] MEDS ORDERED: NA CHLORIDE 0.9% 1,000 ML ONE (19:51)
--- NOTE | 2018-11-13 21:59 | ER ---
Nurse's Notes [facility] Name: Cholo Salcido Jr Age: 38 yrs Sex: Male : 1980 Arrival Date: 11/13/2018 Time: 17:08 Bed 15 Private MD: Diagnosis: Nausea Presentation: 11/13 17:10 Presenting complaint: Patient states: "Diarrhea, maybe gonorrhea. I can't explain it. I aj1 smell throw up sometimes. I don't know if I threw up." Patient reports abdominal pain. Reports that he is unsure how long he has been having theses symptoms "it could be days it could be weeks". Transition of care: patient was not received from another setting of care. Onset of symptoms is unknown. Risk Assessment: Do you want to hurt yourself or someone else? Patient reports no desire to harm self or others. Initial Sepsis Screen: Does the patient meet any 2 criteria? No. Patient's initial sepsis screen is negative. Does the patient have a suspected source of infection? Yes: Acute abdominal pain. Care prior to arrival: None. 17:10 Method Of Arrival: Ambulatory aj 17:10 Acuity: BAM 3 aj1 Triage Assessment: 17:12 General: Appears in no apparent distress. comfortable, Behavior is calm, cooperative, aj1 appropriate for age. Pain: Complains of pain in abdomen Pain currently is 8 out of 10 on a pain scale. Neuro: Level of Consciousness is awake, alert, obeys commands, Oriented to person, place, time, situation. Cardiovascular: Patient's skin is warm and dry. Respiratory: Airway is patent Respiratory effort is even, unlabored, Respiratory pattern is regular, symmetrical. GI: Reports lower abdominal pain, upper abdominal pain. Historical: - Allergies: 17:12 No Known Allergies; aj1 - Home Meds: 17:12 None [Active]; aj1 - PMHx: 17:12 Anxiety; Pneumonia; Schizophrenia; Seizures; resolved now; synthetic marajuana; states aj1 no longer uses; - Immunization history:: Flu vaccine is not up to date. - Social history:: Smoking status: Patient uses tobacco products, denies chronic smoking, but will smoke occasionally. - Ebola Screening: : Patient denies travel to an Ebola-affected area in the 21 days before illness onset. Screenin:30 Abuse screen: Denies threats or abuse. Nutritional screening: No deficits noted. rb1 Tuberculosis screening: No symptoms or risk factors identified. Fall Risk None identified. Assessment: 17:30 General: Appears in no apparent distress. comfortable, Behavior is calm, cooperative, rb1 Denies fever. General: Pt. reports not really knowing what is wrong. Reports maybe vomiting. Pain: Complains of pain in abdomen Pain currently is 7 out of 10 on a pain scale. Pain began unknown. Neuro: Level of Consciousness is awake, alert, obeys commands, Oriented to person, place, time, situation. Cardiovascular: Capillary refill < 3 seconds is brisk in bilateral fingers. Respiratory: Airway is patent Respiratory effort is even, unlabored, Respiratory pattern is regular, symmetrical. GI: Reports nausea, vomiting. : No signs and/or symptoms were reported regarding the genitourinary system. Derm: Skin is pink, warm \\T\\ dry. 17:30 General: Pt. randomly talks about different subjects.. rb1 17:50 Reassessment: Pt. is concerned about me starting an IV, pt. reports that he has rb1 received injections in the past that they were not authorized to give. I explained that the provider ordered labs so we could properly diagnose him. Pt. was still reluctant. 18:17 Reassessment: Pt. agreed to have an IV started for labs to be drawn. rb1 18:53 Reassessment: Patient appears in no apparent distress at this time. No changes from rb1 previously documented assessment. 19:56 Reassessment: Patient appears in no apparent distress at this time. Patient and/or aa1 family updated on plan of care and expected duration. Pain level reassessed. Patient is alert, oriented x 3, equal unlabored respirations, skin warm/dry/pink. NS bolus infusing; awaiting provider reassessment. 21:00 Reassessment: Patient appears in no apparent distress at this time. Patient and/or aa1 family updated on plan of care and expected duration. Pain level reassessed. Patient is alert, oriented x 3, equal unlabored respirations, skin warm/dry/pink. Awaiting provider reassessment. 22:17 Reassessment: Patient appears in no apparent distress at this time. Patient is alert, aa1 oriented x 3, equal unlabored respirations, skin warm/dry/pink. Discussed d/c \\T\\ f/u instructions with pt; denies questions or concerns at this time. Ambulatory to lobby with steady gait Patient denies pain at this time. Vital Signs: 17:12 BP 139 / 98; Pulse 64; Resp 16; Temp 98.1(TE); Pulse Ox 100% on R/A; Weight 68.04 kg aj1 (R); Height 5 ft. 6 in. (167.64 cm) (R); 18:37 BP 120 / 83; Pulse 53; Resp 15; Temp 98.1(O); Pulse Ox 100% on R/A; Pain 5/10; rb1 19:56 BP 108 / 80; Pulse 57; Resp 16; Pulse Ox 100% on R/A; Pain 0/10; aa1 22:17 BP 111 / 81; Pulse 59; Resp 16; Temp 98.0; Pulse Ox 99% on R/A; Pain 0/10; aa1 17:12 Body Mass Index 24.21 (68.04 kg, 167.64 cm) aj1 ED Course: 17:08 Patient arrived in ED. mr 17:12 Triage completed. aj1 17:12 Arm band placed on Patient placed in an exam room. aj1 17:30 Femi Denson PA is PHCP. jr8 17:30 Bharat Leon MD is Attending Physician. jr8 17:30 Patient has correct armband on for positive identification. Bed in low position. Call rb1 light in reach. Side rails up X 1. Pulse ox on. NIBP on. 17:40 Gladys Gaxiola, RN is Primary Nurse. rb1 18:30 Inserted saline lock: 22 gauge in right antecubital area, using aseptic technique. rb1 Blood collected. 21:56 Lisa Cartwright MD is Referral Physician. jr8 22:17 No provider procedures requiring assistance completed. IV discontinued, intact, aa1 bleeding controlled, No redness/swelling at site. Pressure dressing applied. Administered Medications: 19:54 Drug: NS 0.9% 1000 ml Route: IV; Rate: 1000 ml; Site: right antecubital; aa1 20:30 Follow up: IV Status: Completed infusion; IV Intake: 1000ml aa1 Intake: 20:30 IV: 1000ml; Total: 1000ml. aa1 Outcome: 21:57 Discharge ordered by . jr8 22:17 Discharged to home ambulatory. aa1 22:17 Condition: good 22:17 Discharge instructions given to patient, Instructed on discharge instructions, follow up and referral plans. medication usage, Demonstrated understanding of instructions, follow-up care, medications, Prescriptions given X 1. 22:19 Patient left the ED. aa1 Signatures: Lesley Amos RN RN aj1 Jennifer Sutton RN RN aa1 PalaciosDay ritchie, Femi, PA PA jr8 Gladys Gaxiola RN RN rb1 Corrections: (The following items were deleted from the chart) 18:41 18:35 General: Appears in no apparent distress. comfortable, Behavior is calm, rb1 cooperative, Denies fever, rb1 18:41 18:35 Pain: Complains of pain in abdomen Pain currently is 7 out of 10 on a pain scale. rb1 Pain began unknown rb1 18:41 18:35 Neuro: Level of Consciousness is awake, alert, obeys commands, Oriented to rb1 person, place, time, situation, rb1 18:41 18:35 Cardiovascular: Capillary refill < 3 seconds is brisk in bilateral fingers rb1 rb1 18:41 18:35 Respiratory: Airway is patent Respiratory effort is even, unlabored, Respiratory rb1 pattern is regular, symmetrical, rb1 18:41 18:35 GI: Reports nausea, vomiting, rb1 rb1 18:41 18:35 : No signs and/or symptoms were reported regarding the genitourinary system. [id number] 18:41 18:35 Derm: Skin is pink, warm \\T\\ dry. rb1 rb1 18:41 18:35 General: Pt. reports not really knowing what is wrong. Reports maybe vomiting. [id number]
--- NOTE | 2018-11-13 22:00 | EDPHYS ---
Physician Documentation [facility] Name: Cholo Salcido Jr Age: 38 yrs Sex: Male : 1980 Arrival Date: 11/13/2018 Time: 17:08 Bed 15 Private MD: ED Physician Bharat Leon HPI: 11/13 21:40 This 38 yrs old Male presents to ER via Ambulatory with complaints of jr8 Vomiting/Diarrhea. 21:40 The patient presents to the emergency department with nausea, that is mild, diarrhea, jr8 pt reports that he may or may have not had diarrhea for days or maybe even months. Onset: The symptoms/episode began/occurred at an unknown time. Possible causes: unknown. The symptoms are alleviated by nothing. Associated signs and symptoms: The patient has no apparent associated signs or symptoms. Severity of symptoms: At their worst the symptoms were very mild. The patient has experienced similar episodes in the past, several times. Historical: - Allergies: 17:12 No Known Allergies; aj1 - Home Meds: 17:12 None [Active]; aj1 - PMHx: 17:12 Anxiety; Pneumonia; Schizophrenia; Seizures; resolved now; synthetic marajuana; states aj1 no longer uses; - Immunization history:: Flu vaccine is not up to date. - Social history:: Smoking status: Patient uses tobacco products, denies chronic smoking, but will smoke occasionally. - Ebola Screening: : Patient denies travel to an Ebola-affected area in the 21 days before illness onset. ROS: 21:40 Eyes: Negative for injury, pain, redness, and discharge, Cardiovascular: Negative for jr8 chest pain, palpitations, and edema, Respiratory: Negative for shortness of breath, cough, wheezing, and pleuritic chest pain, Back: Negative for injury and pain, : Negative for injury, bleeding, discharge, and swelling, Neuro: Negative for headache, weakness, numbness, tingling, and seizure, Endocrine: Negative for neck swelling, polydipsia, polyuria, polyphagia, and marked weight changes. 21:40 Abdomen/GI: Positive for nausea, Negative for abdominal pain, vomiting, diarrhea, constipation, abdominal cramps. 21:40 Psych: Positive for anxiety, depression, schizophrenia. Exam: 21:42 Constitutional: This is a well developed, well nourished patient who is awake, alert, jr8 and in no acute distress. Head/Face: Normocephalic, atraumatic. Eyes: Pupils equal round and reactive to light, extra-ocular motions intact. Lids and lashes normal. Conjunctiva and sclera are non-icteric and not injected. Cornea within normal limits. Periorbital areas with no swelling, redness, or edema. Neck: Trachea midline, no thyromegaly or masses palpated, and no cervical lymphadenopathy. Supple, full range of motion without nuchal rigidity, or vertebral point tenderness. No Meningismus. Chest/axilla: Normal chest wall appearance and motion. Nontender with no deformity. No lesions are appreciated. Cardiovascular: Regular rate and rhythm with a normal S1 and S2. No gallops, murmurs, or rubs. Normal PMI, no JVD. No pulse deficits. Respiratory: Lungs have equal breath sounds bilaterally, clear to auscultation and percussion. No rales, rhonchi or wheezes noted. No increased work of breathing, no retractions or nasal flaring. Abdomen/GI: Soft, non-tender, with normal bowel sounds. No distension or tympany. No guarding or rebound. No evidence of tenderness throughout. Skin: Warm, dry with normal turgor. Normal color with no rashes, no lesions, and no evidence of cellulitis. MS/ Extremity: Pulses equal, no cyanosis. Neurovascular intact. Full, normal range of motion. Neuro: Awake and alert, GCS 15, oriented to person, place, time, and situation. Cranial nerves II-XII grossly intact. Motor strength 5/5 in all extremities. Sensory grossly intact. Cerebellar exam normal. Normal gait. 21:42 Psych: Behavior/mood is cooperative, anxious, Affect is calm, Oriented to person, place, time, Patient has no thoughts/intents to harm self or others. Judgement / Insight is impaired. Vital Signs: 17:12 BP 139 / 98; Pulse 64; Resp 16; Temp 98.1(TE); Pulse Ox 100% on R/A; Weight 68.04 kg aj1 (R); Height 5 ft. 6 in. (167.64 cm) (R); 18:37 BP 120 / 83; Pulse 53; Resp 15; Temp 98.1(O); Pulse Ox 100% on R/A; Pain 5/10; rb1 19:56 BP 108 / 80; Pulse 57; Resp 16; Pulse Ox 100% on R/A; Pain 0/10; aa1 22:17 BP 111 / 81; Pulse 59; Resp 16; Temp 98.0; Pulse Ox 99% on R/A; Pain 0/10; aa1 17:12 Body Mass Index 24.21 (68.04 kg, 167.64 cm) aj1 MDM: 17:30 Patient medically screened. 8 21:43 Data reviewed: vital signs, nurses notes, lab test result(s). jr8 21:55 Data interpreted: Pulse oximetry: on room air is 100 %. Interpretation: normal. jr8 Counseling: I had a detailed discussion with the patient and/or guardian regarding: the historical points, exam findings, and any diagnostic results supporting the discharge/admit diagnosis, lab results, the need for outpatient follow up, a family practitioner, to return to the emergency department if symptoms worsen or persist or if there are any questions or concerns that arise at home. Response to treatment: the patient's symptoms have markedly improved after treatment. 11/13 17:47 Order name: Basic Metabolic Panel [facility] 11/13 17:47 Order name: CBC with Diff [facility] 11/13 17:47 Order name: Creatinine for Radiology [facility] 11/13 17:47 Order name: Hepatic Function [facility] 11/13 17:47 Order name: Lipase [facility] 11/13 19:11 Order name: CBC with Automated Diff; Complete Time: 19:28 [facility] 11/13 17:47 Order name: IV Saline Lock; Complete Time: 18:34 [facility] 11/13 17:47 Order name: Labs collected and sent; Complete Time: 18:34 [facility] 11/13 19:18 Order name: Creatinine (Radiology Only); Complete Time: 19:28 [facility] 11/13 19:22 Order name: Basic Metabolic Panel; Complete Time: 19:28 [facility] 11/13 19:22 Order name: Liver (Hepatic) Function; Complete Time: 19:28 [facility] 11/13 19:22 Order name: Lipase; Complete Time: 19:28 EDMS Administered Medications: 19:54 Drug: NS 0.9% 1000 ml Route: IV; Rate: 1000 ml; Site: right antecubital; aa1 20:30 Follow up: IV Status: Completed infusion; IV Intake: 1000ml aa1 Disposition: 11/14 07:20 Co-signature as Attending Physician, Bharat Leon MD I agree with the assessment and kdr plan of care. Disposition: 11/13/18 21:57 Discharged to Home. Impression: Nausea. - Condition is Stable. - Discharge Instructions: Nausea, Adult. - Prescriptions for Zofran 4 mg Oral Tablet - take 1 tablet by ORAL route every 12 hours As needed; 20 tablet. - Medication Reconciliation Form, Thank You Letter, Antibiotic Education, Prescription Opioid Use form. - Follow up: Lisa Cartwright MD; When: 1 week; Reason: If symptoms return, Recheck today's complaints, Continuance of care, Re-evaluation by your physician. - Problem is new. - Symptoms have improved. Signatures: Dispatcher [employer] EDLesley Caballero RN RN aj1 Jennifer Sutton RN RN aa1 Bharat Leon MD MD [facility] Femi Denson PA PA jr8 Corrections: (The following items were deleted from the chart) 11/13 22:19 21:57 11/13/2018 21:57 Discharged to Home. Impression: Nausea. Condition is Stable. aa1 Forms are Medication Reconciliation Form, Thank You Letter, Antibiotic Education, Prescription Opioid Use. Follow up: Lisa Cartwright; When: 1 week; Reason: If symptoms return, Recheck today's complaints, Continuance of care, Re-evaluation by your physician. Problem is new. Symptoms have improved. jr8
[2018-11-14 00:57] VITALS: BP 111/81; TEMP 98; O2SAT 99
== END 2018-11-13 22:19 | disposition home or self-care (01) ==
LOC: ER 17:04
DX: R11.2 Nausea with vomiting, unspecified (principal); Z72.0 Tobacco use
CPT/HCPCS: 85025; 80048; 36415; 80076; 83690; 96360; 99284; J7030

== ENCOUNTER 2018-11-22 17:45 | Emergency (ER) | payer OTHER ==
[2018-11-22 18:46] LABS: Absolute Lymphocytes (CBC) 1.7 K/uL (0.7-4.9); Basophils % 0.4 % (0-1.3); Hematocrit 42.2 % (39.6-49.0); Lymphocytes % 19.7 % (15.3-44.8); MPV 8.8 fL (7.6-11.3); RBC Red Blood Cell Count 4.57 M/uL (4.33-5.43)
[2018-11-22 19:00] LABS: Potassium 4.2 mmol/L (3.5-5.1)
--- NOTE | 2018-11-22 19:40 | RAD REPORT ---
EXAM DESCRIPTION: CT - Head Brain Wo Cont - 11/22/2018 7:16 pm CLINICAL HISTORY: Fall, head injury, headache COMPARISON: CT head July 2015 TECHNIQUE: Axial 5 mm thick images of the head were obtained without IV contrast. All CT scans are performed using dose optimization technique as appropriate and may include automated exposure control or mA/KV adjustment according to patient size. FINDINGS: No intracranial hemorrhage, mass, edema or shift of mid-line structures. No abnormal extra -axial fluid collections. Ventricles are normal. Mastoid air cells and visualized portions of the paranasal sinuses are clear. No acute bony findings. No significant change from comparison. IMPRESSION: Negative non-contrast CT head examination.
--- NOTE | 2018-11-22 19:43 | RAD REPORT ---
EXAM DESCRIPTION: CT - Chest Abdomen Pelvis W Cont - 11/22/2018 7:27 pm CLINICAL HISTORY: Fall, chest and abdomen pain COMPARISON: None. TECHNIQUE: Following dynamic enhancement using 100 milliliters nonionic IV contrast, axial imaging o f the chest, abdomen and pelvis was performed. Biphasic technique was utilized through the abdomen. Oral contrast was administered. All CT scans are performed using dose optimization technique as appropriate and may include automated exposure control or mA/KV adjustment according to patient size. FINDINGS: Lungs are clear of mass and infiltrate. No pleural effusion, pleural thickening or pneumot horax. No significant aortic or pulmonary arterial tree finding. Mediastinal and hilar regions show n o mass or abnormal lymphadenopathy. No chest wall mass or axillary lymphadenopathy. The liver, spleen and pancreas show no suspicious findings. Gallbladder and biliary tree are unremark able. Gallstones can be occult on CT imaging. Symmetric renal function is seen with no mass or hydro nephrosis. No adrenal abnormalities. No dilated bowel loops or focal bowel wall thickening. No acute GI findings seen. No acute or destructive bony process. No significant vascular findings. IMPRESSION: CT chest, abdomen and pelvis imaging shows no significant or suspicious finding.
--- NOTE | 2018-11-22 19:52 | RAD REPORT ---
EXAM DESCRIPTION: RAD - Ankle Right 3 View - 11/22/2018 6:49 pm CLINICAL HISTORY: Fall, ankle pain COMPARISON: None. FINDINGS: No fracture, dislocation or periosteal reaction. No joint effusion seen. No joint space na rrowing. No soft tissue abnormality. IMPRESSION: Negative right ankle
--- NOTE | 2018-11-22 19:52 | RAD REPORT ---
EXAM DESCRIPTION: RAD - Foot Right 3 View - 11/22/2018 6:49 pm CLINICAL HISTORY: Fall, right foot pain COMPARISON: September 2017 FINDINGS: No fracture, dislocation or periosteal reaction. No acute bone or joint finding. No air or foreign body in the soft tissues. IMPRESSION: Negative right foot examination.
--- NOTE | 2018-11-22 20:05 | ER ---
Nurse's Notes [facility] Name: Cholo Salcido Jr Age: 38 yrs Sex: Male : 1980 Arrival Date: 11/22/2018 Time: 17:47 Bed 28 Private MD: Diagnosis: Contusion of other part of head;Contusion of thorax Presentation: 11/22 17:56 Presenting complaint: Patient states: "I think I got a broke rib and ankle. I fell off aj1 the pier into the rocks below" States that he fell yesterday. Reports pain to right side and right ankle. Reports pain is worse when he takes a deep breath. Bruising noted around left eye. States that he can't hear out of his left ear and he has a headache. Reports positive LOC, he is unsure for how long. Also reports changes in vision. Transition of care: patient was not received from another setting of care. Onset of symptoms was November 21, 2018 at 12:00. Risk Assessment: Do you want to hurt yourself or someone else? Patient reports no desire to harm self or others. Initial Sepsis Screen: Does the patient meet any 2 criteria? No. Patient's initial sepsis screen is negative. Does the patient have a suspected source of infection? No. Patient's initial sepsis screen is negative. Care prior to arrival: None. 17:56 Method Of Arrival: Ambulatory aj 17:56 Acuity: BAM 2 aj1 Triage Assessment: 18:00 General: Appears in no apparent distress. uncomfortable, Behavior is calm, cooperative, aj1 appropriate for age. Pain: Complains of pain in right lateral anterior chest, right lateral posterior chest and right ankle. Neuro: Level of Consciousness is awake, alert, obeys commands. Cardiovascular: Patient's skin is warm and dry. Respiratory: Airway is patent Respiratory effort is even, unlabored, Respiratory pattern is regular, symmetrical. Musculoskeletal: Range of motion: limited in right ankle. Historical: - Allergies: 18:00 No Known Allergies; aj1 - Home Meds: 18:00 None [Active]; aj1 - PMHx: 18:00 Anxiety; Pneumonia; Schizophrenia; Seizures; resolved now; synthetic marajuana; states aj1 no longer uses; - Immunization history:: Flu vaccine is not up to date. - Social history:: Smoking status: Patient uses tobacco products, denies chronic smoking, but will smoke occasionally. - Ebola Screening: : Patient denies travel to an Ebola-affected area in the 21 days before illness onset. - Family history:: not pertinent. - Hospitalizations: : No recent hospitalization is reported. Screenin:08 Abuse screen: Denies threats or abuse. Denies injuries from another. Nutritional ca1 screening: No deficits noted. Tuberculosis screening: No symptoms or risk factors identified. Fall Risk Fall in past 12 months (25 points). Assessment: 18:08 General: Appears in no apparent distress. comfortable, Behavior is calm, cooperative, ca1 appropriate for age. Pain: Complains of pain in right leg and chest and right ankle and right lateral posterior chest and right lateral anterior chest Pain currently is 10 out of 10 on a pain scale. Pain began 1 day ago. Neuro: Level of Consciousness is awake, alert, obeys commands, Oriented to person, place, time, situation, Appropriate for age Supplier Relationship Director are equal bilaterally Moves all extremities. Gait is steady. Cardiovascular: Heart tones S1 S2 present Capillary refill < 3 seconds Patient's skin is warm and dry. Pulses are all present. Respiratory: Airway is patent Respiratory effort is even, unlabored, Respiratory pattern is regular, symmetrical, Breath sounds are clear bilaterally. GI: Abdomen is flat, non-distended, Bowel sounds present X 4 quads. Abdomen is tender to palpation in right upper quadrant and right lower quadrant. : No deficits noted. No signs and/or symptoms were reported regarding the genitourinary system. EENT: No deficits noted. No signs and/or symptoms were reported regarding the EENT system. Derm: Skin is intact, is healthy with good turgor, Skin is pink, warm \\T\\ dry. Derm: Bruising that is dark purple, on left eye. Musculoskeletal: Circulation, motion, and sensation intact. Capillary refill < 3 seconds, Range of motion: intact in all extremities. 19:00 Reassessment: Patient appears in no apparent distress at this time. Patient and/or ca1 family updated on plan of care and expected duration. Pain level reassessed. Patient is alert, oriented x 3, equal unlabored respirations, skin warm/dry/pink. 19:49 Reassessment: Patient appears in no apparent distress at this time. Patient and/or ca1 family updated on plan of care and expected duration. Pain level reassessed. Patient is alert, oriented x 3, equal unlabored respirations, skin warm/dry/pink. Vital Signs: 18:00 BP 148 / 81; Pulse 97; Resp 18; Temp 97.2; Pulse Ox 99% on R/A; Weight 62.14 kg (R); aj1 Height 5 ft. 6 in. (167.64 cm) (R); Pain 10/10; 18:08 BP 120 / 83; Pulse 82; Resp 14 S; Pulse Ox 100% on R/A; ca1 19:00 BP 120 / 82; Pulse 76; Resp 16 S; Pulse Ox 100% on R/A; ca1 19:50 BP 113 / 77; Pulse 73; Resp 15 S; Pulse Ox 100% on R/A; ca1 20:12 BP 128 / 74; Pulse 79; Resp 17 S; Pulse Ox 99% on R/A; ca1 18:00 Body Mass Index 22.11 (62.14 kg, 167.64 cm) [facility] ED Course: 17:47 Patient arrived in ED. as 18:00 Triage completed. aj1 18:00 Arm band placed on Patient placed in an exam room. 1 18:03 Mary Burton, RN is Primary Nurse. ca1 18:08 Patient has correct armband on for positive identification. Bed in low position. Call ca1 light in reach. Side rails up X 1. Pulse ox on. NIBP on. Warm blanket given. Head of bed elevated. 18:12 Danny Chacon MD is Attending Physician. rn 18:38 Inserted saline lock: 18 gauge in left antecubital area, using aseptic technique. Blood ca1 collected. 18:40 Radiology exam delayed due to lab results not completed at this time. (BUN/Creatinine) bq IV insertion attempt and/or patient not having appropriate IV at this time. per Ines. 18:50 XRAY Foot RIGHT 3 View In Process Unspecified. EDMS 18:53 XRAY Ankle RIGHT 3 view In Process Unspecified. EDMS 18:59 X-ray completed. Portable x-ray completed in exam room. Patient tolerated procedure mh1 well. 19:18 CT Head Brain wo Cont In Process Unspecified. EDMS 19:28 CT Chest, Abdomen, Pelvis - W/Contrast In Process Unspecified. EDMS 19:28 CT completed. Patient tolerated procedure well. Patient moved back from CT. mw3 20:13 No provider procedures requiring assistance completed. IV discontinued, intact, ca1 bleeding controlled, No redness/swelling at site. Pressure dressing applied. Administered Medications: No medications were administered Outcome: 20:04 Discharge ordered by . gs 20:13 Discharged to home ambulatory. ca1 20:13 Condition: stable 20:13 Discharge instructions given to patient, Instructed on discharge instructions, follow up and referral plans. Demonstrated understanding of instructions, follow-up care. 20:14 Patient left the ED. ca1 Signatures: Dispatcher [employer] EDMS Lesley Amos RN RN aj1 Ana Sebastian 1 Vianca Sanches bq Sameer, Danny Rosario MD MD rn Starr, Gregory, MD MD gs Wilhelm, Kimberly kw1 Alba [place] mw3 Mary Burton RN RN ca1 Corrections: (The following items were deleted from the chart) 18:40 18:36 Radiology exam delayed due to lab results not completed at this time. bq (BUN/Creatinine) IV insertion attempt and/or patient not having appropriate IV at this time. kw1 19:49 19:00 Reassessment: Patient appears in no apparent distress at this time. Patient ca1 and/or family updated on plan of care and expected duration. Pain level reassessed. Patient is alert, oriented x 3, equal unlabored respirations, skin warm/dry/pink. ca1
--- NOTE | 2018-11-22 20:06 | EDPHYS ---
Physician Documentation [facility] Name: Cholo Salcido Jr Age: 38 yrs Sex: Male : 1980 Arrival Date: 11/22/2018 Time: 17:47 Bed 28 Private MD: ED Physician Danny Chacon HPI: 11/22 18:39 This 38 yrs old Male presents to ER via Ambulatory with complaints of Ankle rn Injury, Rib Pain. 18:39 Details of fall: The patient fell from a height, pier. Onset: The symptoms/episode rn began/occurred yesterday. Associated injuries: The patient sustained injury to the head, injury to the chest, injury to the abdomen. Severity of symptoms: At their worst the symptoms were moderate, in the emergency department the symptoms are unchanged. The patient has not experienced similar symptoms in the past. Reports fall from height, pier, yesterday, landed on rocks, hit head, thinks lost consciousness, was drinking, woke up and went home. Woke up today in more pain. Reports pain to head/right chest/right upper abdomen, and right ankle/foot.. Historical: - Allergies: 18:00 No Known Allergies; aj1 - Home Meds: 18:00 None [Active]; aj1 - PMHx: 18:00 Anxiety; Pneumonia; Schizophrenia; Seizures; resolved now; synthetic marajuana; states aj1 no longer uses; - Immunization history:: Flu vaccine is not up to date. - Social history:: Smoking status: Patient uses tobacco products, denies chronic smoking, but will smoke occasionally. - Ebola Screening: : Patient denies travel to an Ebola-affected area in the 21 days before illness onset. - Family history:: not pertinent. - Hospitalizations: : No recent hospitalization is reported. ROS: 18:39 Constitutional: Negative for fever, chills, and weight loss, Eyes: Negative for injury, rn pain, redness, and discharge, Neck: Negative for injury, pain, and swelling, Cardiovascular: + right chest pain Respiratory: + right rib pain Abdomen/GI: Negative for nausea, vomiting, diarrhea, and constipation, MS/Extremity: + right ankle and foot injury and pain Skin: Negative for injury, rash, and discoloration, Neuro: Negative for headache, weakness, numbness, tingling, and seizure. Exam: 18:39 Constitutional: This is a well developed, well nourished patient who is awake, alert, rn and in no acute distress. ambulatory to room with limp Head/Face: + left periorbital ecchymosis, no bony tenderness Eyes: Pupils equal round and reactive to light, extra-ocular motions intact. ENT: No oral trauma Neck: No midline tenderness Chest/axilla: + right lateral/inferior rib tenderness, no crepitus Cardiovascular: Regular rate and rhythm. No pulse deficits. Respiratory: Diminished breath sounds bilateral bases. Abdomen/GI: soft, non-tender MS/ Extremity: Pulses equal, no cyanosis. Neurovascular intact. Mild tenderness lateral right ankle and proximal foot, no gross deformity. Neuro: Awake and alert, GCS 15, oriented to person, place, time, and situation. Cranial nerves II-XII grossly intact. Motor strength 5/5 in all extremities. Sensory grossly intact. Cerebellar exam normal. Antalgic gait. Vital Signs: 18:00 BP 148 / 81; Pulse 97; Resp 18; Temp 97.2; Pulse Ox 99% on R/A; Weight 62.14 kg (R); aj1 Height 5 ft. 6 in. (167.64 cm) (R); Pain 10/10; 18:08 BP 120 / 83; Pulse 82; Resp 14 S; Pulse Ox 100% on R/A; ca1 19:00 BP 120 / 82; Pulse 76; Resp 16 S; Pulse Ox 100% on R/A; ca1 19:50 BP 113 / 77; Pulse 73; Resp 15 S; Pulse Ox 100% on R/A; ca1 20:12 BP 128 / 74; Pulse 79; Resp 17 S; Pulse Ox 99% on R/A; ca1 18:00 Body Mass Index 22.11 (62.14 kg, 167.64 cm) aj1 MDM: 18:12 Patient medically screened. rn 18:52 ED course: Passed on to Dr. Ortiz pending CT head/chest/abdomen, as well as xray rn ankle/foot.. 20:01 Data reviewed: vital signs, nurses notes, radiologic studies. Counseling: I had a gs detailed discussion with the patient and/or guardian regarding: the historical points, exam findings, and any diagnostic results supporting the discharge/admit diagnosis, the need for outpatient follow up. ED course: pt seen and examined films reviewed will discharge patient. 11/22 18:28 Order name: CBC with Diff; Complete Time: 20:00 rn 11/22 18:28 Order name: Basic Metabolic Panel; Complete Time: 20:00 rn 11/22 18:28 Order name: CT Head Brain wo Cont; Complete Time: 20:00 rn 11/22 18:28 Order name: CT Chest, Abdomen, Pelvis - W/Contrast; Complete Time: 20:00 rn 11/22 18:28 Order name: XRAY Foot RIGHT 3 View; Complete Time: 20:00 rn 11/22 18:28 Order name: XRAY Ankle RIGHT 3 view; Complete Time: 20:00 rn 11/22 18:28 Order name: IV Start; Complete Time: 18:40 rn Administered Medications: No medications were administered Disposition: 11/22/18 20:04 Discharged to Home. Impression: Contusion of other part of head, Contusion of thorax. - Condition is Stable. - Discharge Instructions: Chest Contusion, Adult, Head Injury, Adult. - Medication Reconciliation Form, Thank You Letter, Antibiotic Education, Prescription Opioid Use form. - Follow up: Private Physician; When: 2 - 3 days; Reason: Re-evaluation by your physician. Signatures: Dispatcher [employer] EDLesley Caballero RN RN aj1 Danny Chacon MD MD rn Starr, Gregory, MD MD gs Mary Burton RN RN ca1 Corrections: (The following items were deleted from the chart) 20:14 20:04 11/22/2018 20:04 Discharged to Home. Impression: Contusion of other part of head; ca1 Contusion of thorax. Condition is Stable. Forms are Medication Reconciliation Form, Thank You Letter, Antibiotic Education, Prescription Opioid Use. Follow up: Private Physician; When: 2 - 3 days; Reason: Re-evaluation by your physician. gs
[2018-11-23 01:49] VITALS: TEMP 97.2
[2018-11-23 01:53] VITALS: BP 128/74; O2SAT 99
== END 2018-11-22 20:14 | disposition home or self-care (01) ==
LOC: ER 17:45
DX: S20.20XA Contusion of thorax, unspecified, initial encounter (principal); S00.83XA Contusion of other part of head, initial encounter; W17.89XA Other fall from one level to another, initial encounter; Y93.89 Activity, other specified; Y92.89 Other specified places as the place of occurrence of the external cause; Z72.0 Tobacco use
CPT/HCPCS: 85025; 80048; 36415; 70450; 71260; 74177; 73630; 73610; 99284; Q9967

== ENCOUNTER 2019-02-14 11:33 | Emergency (ER) | payer OTHER ==
[2019-02-14 12:25] LABS: Absolute Lymphocytes (CBC) 1.3 K/uL (0.7-4.9); Basophils % 0.9 % (0-1.3); Hematocrit 46.7 % (39.6-49.0); Lymphocytes % 31.3 % (15.3-44.8); MPV 9.8 fL (7.6-11.3); RBC Red Blood Cell Count 4.98 M/uL (4.33-5.43)
[2019-02-14 12:28] LABS: Protime INR 1.07
[2019-02-14 13:10] LABS: ALT/SGPT 25 U/L (12-78); AST/SGOT 24 U/L (15-37); Albumin 4.5 g/dL (3.4-5.0); Alkaline Phosphatase 67 U/L (45-117); BUN Blood Urea Nitrogen 13 mg/dL (7-18); Bicarbonate 26 mmol/L (21-32); Bilirubin Direct 0.3 mg/dL (0-0.2); Bilirubin Total 2.2 mg/dL (0.2-1.0); Glucose Level 85 mg/dL (74-106); Potassium 4.3 mmol/L (3.5-5.1); Protein, Total 7.9 g/dL (6.4-8.2); Sodium Level 139 mmol/L (136-145)
--- NOTE | 2019-02-14 15:14 | ER ---
Nurse's Notes [facility] Name: Cholo Salcido Jr Age: 38 yrs Sex: Male : 1980 Arrival Date: 02/14/2019 Time: 11:39 Bed 19 Private MD: Diagnosis: Suicidal ideations Presentation: 02/14 11:39 Presenting complaint: administrative law judge reports that patient attempted to hang ss himself in fci cell with a pair of pants approximately 30 minutes ago of which he was unsuccessful. Patient reports a history of suicidal attempts, is unable to answer if whether or not he is homicidal, but states he tries to hurt himself before he hurts anyone else. Transition of care: patient was not received from another setting of care. Onset of symptoms is unknown. Risk Assessment: Do you want to hurt yourself or someone else? Patient reports desire/thoughts of hurting themselves or someone else. Provider notified. Initial Sepsis Screen: Does the patient meet any 2 criteria? No. Patient's initial sepsis screen is negative. Does the patient have a suspected source of infection? No. Patient's initial sepsis screen is negative. Note Patient brought to ER by [place] [employer] police, but is no longer in custody. Mental health deputy here at this time to write MEME. Care prior to arrival: None. 11:39 Method Of Arrival: Law Enforcement: [facility] 11:39 Acuity: BAM 2 ss Historical: - Allergies: 12:08 No Known Allergies; ss - Home Meds: 12:08 None [Active]; ss - PMHx: 12:08 Anxiety; Seizures; resolved now; Schizophrenia; ss - PSHx: 12:08 None; ss - Immunization history:: Adult Immunizations up to date. - Social history:: Smoking status: Patient uses tobacco products, smokes one-half pack cigarettes per day. - Ebola Screening: : Patient denies exposure to infectious person Patient denies travel to an Ebola-affected area in the 21 days before illness onset. Screenin:13 Abuse screen: Denies threats or abuse. Denies injuries from another. Nutritional ss screening: No deficits noted. Tuberculosis screening: Never had TB. Fall Risk None identified. Assessment: 12:10 General: Appears in no apparent distress. comfortable, slender, well developed, well em nourished, Behavior is calm, cooperative, Reports SI denies HI, tried to hang himself with jeans while in fci. Pain: Denies pain. Neuro: Level of Consciousness is awake, alert, obeys commands, Oriented to person, place, time, situation, Appropriate for age. Cardiovascular: Capillary refill < 3 seconds Patient's skin is warm and dry. Respiratory: Airway is patent Respiratory effort is even, unlabored, Respiratory pattern is regular, symmetrical. Derm: Skin is intact, is healthy with good turgor, Skin is pink, warm \\T\\ dry. Musculoskeletal: Capillary refill < 3 seconds, Range of motion: intact in all extremities. 12:13 Reassessment: belongings checklist completed. Signed by Joyce Leyva RN, Chano Sim, GUARD LIEUTENANT and the patient. belongings and copy of checklist given to security. 12:15 General: The previous assessment is accurate. Call light remains within reach. ss 13:55 Reassessment: lunch tray given, ate 100% of tray, sitter at bedside. em 14:15 Reassessment: report given to Regina at [facility], pending doc to doc. em 14:35 Reassessment: report given to Nati at [facility]. em 14:42 Reassessment: Nurse to Nurse given to SAMANTA Campbell at [facility]. ss 15:33 Reassessment: report given to [facility]. Psych: 12:29 Subjective: Patient's mood is sad, angry, Delusions are denied, Hallucinations are em denied Having thoughts of suicide. Objective: Patient is cooperative, Speech is normal, Affect is appropriate. Interventions: Removed personal items and placed in bag. Patient placed in hospital gown. Searched person for dangerous items. Belonging list filled out. Suicide Risk Assessment: Sad Person Scale: Sex of patient: Male: Score 1 point. Age of patient: Score 0 point if patient falls outside of specified age parameters. Depression: Score 1 point if signs of depression are present. Previous Attempt: Score 1 point if patient has previously attempted suicide. Substance Abuse: Score 1 point if patient abuses alcohol or drugs. Rational Thinking: Score 0 point if patient has rational thinking. Social Support: Score 1 point if social support is lacking and/or unavailable. Organized Plan: Score 0 if patient did not have an organized plan in place. TOTAL POINTS: If total points are 5-6, proposed clinical action is to strongly consider hospitalization, depending upon confidence in the follow-up arrangement. Implement suicide precautions. Safety Checks: Personal items have been removed. Door is open. No visitors are present at this time. Patient uses cocaine, Last use was 4 days ago. Commitment: Patient will be a voluntary commitment. Vital Signs: 12:08 BP 128 / 98; Pulse 72; Resp 17; Temp 98.2(TE); Pulse Ox 98% on R/A; Weight 61.23 kg; ss Height 5 ft. 6 in. (167.64 cm); Pain 0/10; 12:08 Body Mass Index 21.79 (61.23 kg, 167.64 cm) ED Course: 11:39 Patient arrived in ED. em 11:40 Dion Haider NP is PHCP. pm1 11:40 Danny Chacon MD is Attending Physician. pm1 11:44 Chano Sim LVN is Primary Nurse. em 11:45 Safety checks: Items removed: yes. Door open/sign placed on door: yes. Family/friend em1 present: no. Sitter present: Yes. 12:00 Safety checks: Items removed: yes. Door open/sign placed on door: yes. Family/friend em1 present: no. Sitter present: Yes. 12:00 Inserted saline lock: 20 gauge in right antecubital area, using aseptic technique. ss ,using aseptic technique. Inserted by Chano Sim LVN Blood collected. 12:06 Triage completed. ss 12:08 Arm band placed on right wrist. ss 12:13 Patient has correct armband on for positive identification. Bed in low position. sitter ss at bedside. one on one care began upon arrival. 12:15 Safety checks: Items removed: yes. Door open/sign placed on door: yes. Family/friend em1 present: no. Sitter present: Yes. 12:30 Safety checks: Items removed: yes. Door open/sign placed on door: yes. Family/friend em1 present: no. Sitter present: Yes. 12:45 Safety checks: Items removed: yes. Door open/sign placed on door: yes. Family/friend em1 present: no. Sitter present: Yes. 13:00 Safety checks: Items removed: yes. Door open/sign placed on door: yes. Family/friend mh5 present: no. Sitter present: Yes. 13:15 Safety checks: Items removed: yes. Door open/sign placed on door: yes. Family/friend mh5 present: no. Sitter present: Yes. 13:30 Safety checks: Items removed: yes. Door open/sign placed on door: yes. Family/friend mh5 present: no. Sitter present: Yes. 13:44 Diet: Patient given a regular meal tray. mh5 13:45 Safety checks: Items removed: yes. Door open/sign placed on door: yes. Family/friend mh5 present: no. Sitter present: Yes. 13:49 faxed the patients records to the following facility in the attempt to transfer; [facility], [facility], [facility], [facility], [facility], [facility], [facility], [facility], [facility], [facility], [facility], [facility], [place]. [facility]. 14:00 Safety checks: Items removed: yes. Door open/sign placed on door: yes. Family/friend mh5 present: no. Sitter present: Yes. 14:08 Diet: Patient given a regular meal tray. ORDERED ANOTHER TRAY PATIENT STILL HUNGRIER . mh5 14:09 connected Alba from [facility] with Chano WAYNE for nurse to nurse eb consultation. 14:15 Safety checks: Items removed: yes. Door open/sign placed on door: yes. Family/friend mh5 present: no. Sitter present: Yes. 14:30 Safety checks: Items removed: yes. Door open/sign placed on door: yes. Family/friend mh5 present: no. Sitter present: Yes. 14:39 connected Maryana ENGLAND from [facility] with Joyce ENGLAND for nurse to nurse. eb 14:42 connected the Psychiatrist manager of application development for [facility] Dr. Owens with Dion RODRIGUEZ for doc eb to doc consultation. 14:45 Safety checks: Items removed: yes. Door open/sign placed on door: yes. Family/friend mh5 present: no. Sitter present: Yes. 15:00 Safety checks: Items removed: yes. Door open/sign placed on door: yes. Family/friend mh5 present: no. Sitter present: Yes. Diet: Patient given water. 15:07 administrative approval given by Vashti Ocampo from [facility]/. eb 15:15 Safety checks: Items removed: yes. Door open/sign placed on door: yes. Family/friend mh5 present: no. Sitter present: Yes. NOTIFIED SECURITY FOR PATIENT BELONGINGS . SECURITY BROUGHT BELONGINGS TO PATIENT AND PATIENT ACKNOWLEDGED THOSE ARE HIS BELONGINGS . 15:28 Safety checks: Sitter present: Other: EMS HERE TO TRANSFER PATIENT D/C,"D IV. mh5 15:30 Safety checks: Items removed: yes. Door open/sign placed on door: yes. Family/friend mh5 present: no. Sitter present: Yes. Other: EMS TAKING PATIENT . 15:32 No provider procedures requiring assistance completed. IV discontinued, intact, ss bleeding controlled, No redness/swelling at site. Pressure dressing applied. Administered Medications: No medications were administered Outcome: 15:13 ER care complete, transfer ordered by MD. pm1 15:32 Transferred by ground EMS Transfer form completed. Note: [facility] ss 15:32 Condition: good 15:32 Instructed on the need for transfer, Demonstrated understanding of instructions. 15:34 Patient left the ED. ss Signatures: Chano Sim LVN LVN em Martinez, Eric 1 Joyce Leyva RN RN ss Dion Haider NP STAFF CLIMATE SCIENTIST pm1 [facility] Dottie Scales Corrections: (The following items were deleted from the chart) 14:46 14:42 connected the Psychiatrist manager of application development for [facility] with Dion RODRIGUEZ for doc to eb doc consultation. eb
--- NOTE | 2019-02-14 15:15 | EDPHYS ---
Physician Documentation [facility] Name: Cholo Salcido Jr Age: 38 yrs Sex: Male : 1980 Arrival Date: 02/14/2019 Time: 11:39 Bed 19 Private MD: ED Physician Danny Chacon HPI: 02/14 11:49 This 38 yrs old Male presents to ER via Law Enforcement with complaints of pm1 Suicidal Ideation. 11:49 The patient presents to the emergency department with a history of a suicide gesture, pm1 was setting up to choke himself with his pants while in senior care cell. Onset: The symptoms/episode began/occurred just prior to arrival. Past psychiatric history: Prior diagnosis: schizophrenia, Psychiatric medications include: none, Primary psychiatric physician: the patient does not have a primary psychiatric physician, Has had prior hanging attempts that were unsuccessful, at [facility] about 6 months ago for suicidal ideation. Associated signs and symptoms: Pertinent positives; depression, suicide ideation, Pertinent negatives: abdominal pain, chest pain, hallucinations, nausea, paranoia, substance abuse, vomiting, neck pain. Severity of symptoms: Pain is currently a 0 / 10. The patient has not recently seen a physician. Patient was in police custody and they noticed him wet some toilet paper and cover up the cell camera. When they arrived to his cell they found him with his pair of jeans wrapped around his neck and the other end tied to the stool. The patient reports that he did not have time to twist the pants around his neck. No sore throat, neck pain, shortness of breath or chest pain. Patient reports that he wants to kill himself to prevent him from hurting other people. Historical: - Allergies: 12:08 No Known Allergies; ss - Home Meds: 12:08 None [Active]; ss - PMHx: 12:08 Anxiety; Seizures; resolved now; Schizophrenia; ss - PSHx: 12:08 None; ss - Immunization history:: Adult Immunizations up to date. - Social history:: Smoking status: Patient uses tobacco products, smokes one-half pack cigarettes per day. - Ebola Screening: : Patient denies exposure to infectious person Patient denies travel to an Ebola-affected area in the 21 days before illness onset. ROS: 11:49 Constitutional: Negative for fever, chills, and weight loss, Eyes: Negative for injury, pm1 pain, redness, and discharge, ENT: Negative for injury, pain, and discharge, Neck: Negative for injury, pain, and swelling, Cardiovascular: Negative for chest pain, palpitations, and edema, Respiratory: Negative for shortness of breath, cough, wheezing, and pleuritic chest pain, Abdomen/GI: Negative for abdominal pain, nausea, vomiting, diarrhea, and constipation, Back: Negative for injury and pain, MS/Extremity: Negative for injury and deformity, Skin: Negative for injury, rash, and discoloration, Neuro: Negative for headache, weakness, numbness, tingling, and seizure. 11:49 Psych: Positive for depression, suicide gesture, suicidal ideation, Negative for auditory hallucinations, visual hallucinations, homicidal ideation. Exam: 11:49 Constitutional: This is a well developed, well nourished patient who is awake, alert, pm1 and in no acute distress. Head/Face: Normocephalic, atraumatic. Eyes: Pupils equal round and reactive to light, extra-ocular motions intact. Lids and lashes normal. Conjunctiva and sclera are non-icteric and not injected. Cornea within normal limits. Periorbital areas with no swelling, redness, or edema. ENT: Nares patent. No nasal discharge, no septal abnormalities noted. Tympanic membranes are normal and external auditory canals are clear. Oropharynx with no redness, swelling, or masses, exudates, or evidence of obstruction, uvula midline. Mucous membranes moist. Neck: Trachea midline, no thyromegaly or masses palpated, and no cervical lymphadenopathy. Supple, full range of motion without nuchal rigidity, or vertebral point tenderness. No Meningismus. Chest/axilla: Normal chest wall appearance and motion. Nontender with no deformity. No lesions are appreciated. Cardiovascular: Regular rate and rhythm with a normal S1 and S2. No gallops, murmurs, or rubs. No pulse deficits. Respiratory: Lungs have equal breath sounds bilaterally, clear to auscultation and percussion. No rales, rhonchi or wheezes noted. No increased work of breathing, no retractions or nasal flaring. Abdomen/GI: Soft, non-tender, with normal bowel sounds. No distension or tympany. No guarding or rebound. No evidence of tenderness throughout. Back: No spinal tenderness. No costovertebral tenderness. Full range of motion. Skin: Warm, dry with normal turgor. Normal color with no rashes, no lesions, and no evidence of cellulitis. MS/ Extremity: Pulses equal, no cyanosis. Neurovascular intact. Full, normal range of motion. 11:49 Neuro: Orientation: is normal, Motor: is normal, moves all fours, Gait: is steady, at a normal pace, without difficulty. 11:49 Psych: Behavior/mood is cooperative, depressed, Affect is flat, Oriented to person, place, time, Patient having thoughts of suicide. Judgement / Insight is normal. Delusions/hallucinations are not present. Vital Signs: 12:08 BP 128 / 98; Pulse 72; Resp 17; Temp 98.2(TE); Pulse Ox 98% on R/A; Weight 61.23 kg; ss Height 5 ft. 6 in. (167.64 cm); Pain 0/10; 12:08 Body Mass Index 21.79 (61.23 kg, 167.64 cm) ss MDM: 11:40 Patient medically screened. pm1 13:04 Data reviewed: vital signs. Data interpreted: Pulse oximetry: on room air is 98 %. pm1 Interpretation: normal. 13:17 Counseling: I had a detailed discussion with the patient and/or guardian regarding: the pm1 historical points, exam findings, and any diagnostic results supporting the discharge/admit diagnosis, lab results, the need to transfer to another facility, [facility] does not immediately have the required specialist. 14:49 Physician consultation: MD Owens was contacted at 14:46, regarding regarding transfer, pm1 patient's condition, and will see patient. 02/14 11:40 Order name: Acetaminophen; Complete Time: 13:17 pm1 02/14 11:40 Order name: Basic Metabolic Panel; Complete Time: 13:17 pm1 02/14 11:40 Order name: CBC with Diff; Complete Time: 12:43 pm1 02/14 11:40 Order name: ETOH Level; Complete Time: 13:14 pm1 02/14 11:40 Order name: Hepatic Function; Complete Time: 13:17 pm1 02/14 11:40 Order name: PT-INR; Complete Time: 12:43 pm1 02/14 11:40 Order name: Ptt, Activated; Complete Time: 12:43 pm1 02/14 11:40 Order name: Salicylate; Complete Time: 13:14 pm1 02/14 11:40 Order name: EKG; Complete Time: 11:43 pm1 02/14 11:40 Order name: EKG - Nurse/Tech; Complete Time: 12:32 pm1 02/14 11:40 Order name: IV Saline Lock; Complete Time: 12:15 pm1 02/14 13:02 Order name: Diet Regular; Complete Time: 13:02 5 02/14 14:03 Order name: Diet Regular; Complete Time: 14:03 5 02/14 11:40 Order name: Labs collected and sent; Complete Time: 12:32 pm1 EC:01 Rate is 60 beats/min. Rhythm is regular. QRS [place] is Normal. No Q waves. T waves are pm1 Normal. No ST changes noted. Clinical impression: Normal ECG. Administered Medications: No medications were administered Disposition: 15:44 Co-signature as Attending Physician, Danny Chacon MD. rn Disposition: 02/14/19 15:13 Transfer ordered to Psych Facility. Diagnosis is Suicidal ideations. - Reason for transfer: Specialty. - Accepting physician is Roman FREEDMAN. - Condition is Stable. - Problem is new. - Symptoms have improved. Signatures: Dispatcher [employer] EDDanny Ochoa MD MD rn Smirch, Shelby, RN RN Dion Snyder, DATA PROCESSING MECHANIC DATA PROCESSING MECHANIC pm1 Corrections: (The following items were deleted from the chart) 15:34 15:13 02/14/2019 15:13 Transfer ordered to Psych Facility. Diagnosis is Suicidal ss ideations. Reason for transfer: Specialty. Accepting physician is Roman FREEDMAN. Condition is Stable. Problem is new. Symptoms have improved. pm1
--- NOTE | 2019-02-14 16:11 | EKG ---
Test Date: 2019-02-14 Test Time: 12:57:56 Corporate Account Executive: ALLAN MEASUREMENT RESULTS: Intervals: Rate: 60 NE: 134 QRSD: 106 QT: 416 QTc: 416 [place]: P: 73 NE: 134 QRS: 84 T: 55 INTERPRETIVE STATEMENTS: Normal sinus rhythm Normal ECG Compared to ECG 09/20/2017 14:17:03 Right-axis deviation no longer present Electronically Signed On 02-14-19 16:10:58 ELEVATOR REPAIRER HELPER by Anthony Anders
[2019-02-14 17:13] VITALS: BP 128/98; TEMP 98.2; O2SAT 98
== END 2019-02-14 15:34 ==
LOC: ER 11:33
DX: T14.91XA Suicide attempt, initial encounter (principal); X83.8XXA Intentional self-harm by other specified means, initial encounter; Y93.89 Activity, other specified; Y92.143 Cell of prison as the place of occurrence of the external cause; F17.210 Nicotine dependence, cigarettes, uncomplicated; F20.9 Schizophrenia, unspecified
CPT/HCPCS: 36415; 80048; 80076; 80320; 80329; 85025; 85610; 85730; 93005; 99285

== ENCOUNTER 2020-09-16 16:53 | Emergency (ER) | payer OTHER ==
[2020-09-16 18:19] LABS: Absolute Lymphocytes (CBC) 1.7 K/uL (0.7-4.9); Basophils % 0.7 % (0-1.3); Lymphocytes % 30.1 % (15.3-44.8); MPV 9.3 fL (7.6-11.3); RBC Red Blood Cell Count 5.14 M/uL (4.33-5.43)
[2020-09-16] MEDS ORDERED: HALOPERIDOL LACT 5 MG/ML INJ ONE (18:20)
[2020-09-16] MEDS ORDERED: NA CHLORIDE 0.9% 1,000 ML ONE (18:20)
[2020-09-16 18:29] LABS: Protime INR 0.99
--- NOTE | 2020-09-16 18:37 | ER ---
Nurse's Notes [facility] Name: Cholo Salcido Jr Age: 40 yrs Sex: Male : 1980 Arrival Date: 09/16/2020 Time: 16:54 Bed 8 Private MD: Diagnosis: Presentation: 09/16 17:00 Chief complaint: Patient states: States he is homeless and was sleeping next to 1 animals for 1 month. Reports wheezing, SOB, and coughing fits. States his phone is cracked and is exposing him to chemicals. Bilateral "kidney" problems. Talking to people off/on that aren't there. Feels extorted and that people are after him. No SI or HI. Coronavirus screen: Client denies travel out of the [place] in the last 14 days. At this time, the client does not indicate any symptoms associated with coronavirus-19. Ebola Screen: Patient denies travel to an Ebola-affected area in the 21 days before illness onset. Initial Sepsis Screen: Does the patient meet any 2 criteria? No. Patient's initial sepsis screen is negative. Does the patient have a suspected source of infection? No. Patient's initial sepsis screen is negative. Risk Assessment: Do you want to hurt yourself or someone else? Patient reports no desire to harm self or others. Onset of symptoms was August 17, 2020. 17:00 Method Of Arrival: Ambulatory ll1 17:00 Acuity: BAM 3 ll1 Historical: - Allergies: 17:06 No Known Allergies; ll1 - PMHx: 17:06 Schizophrenia; Seizures; resolved now; Pneumonia; Anxiety; synthetic marajuana; states [facility] no longer uses; - PSHx: 17:06 None; ll1 - Immunization history:: Flu vaccine is not up to date. - Social history:: Smoking status: Patient/guardian denies using tobacco, Stopped _ months ago .2. Screenin:24 Abuse screen: Denies threats or abuse. Denies injuries from another. Nutritional sv screening: No deficits noted. Tuberculosis screening: No symptoms or risk factors identified. Fall Risk None identified. Assessment: 17:24 General: Appears in no apparent distress. comfortable, slender, well developed, sv Behavior is cooperative, appropriate for age. Pain: Denies pain. Neuro: Level of Consciousness is awake, alert, obeys commands, Oriented to person, place, time, situation, Gait is steady. Respiratory: Airway is patent Respiratory effort is even, unlabored, Respiratory pattern is regular, agonal. Derm: Skin is pink, warm \\T\\ dry. 17:52 Reassessment: pt assessed by KAYLIN Denson. pt paranoid and states that he believes he is tr6 having hallucinations and does lash out at people he thinks is there, but then feels badly after. pt states that he would like help and to be transferred out of this area because he believes staying will eventually result in him harming himself or others. pt currently denies any SI or HI. 18:32 Reassessment: Pt states he "would like to have his IV removed because he is leaving." tr6 Pt states he "don't need no help. he can help himself." KAYLIN Denson informed. 18:37 Reassessment: pt removed his own IV and walked out of ER. tr6 Psych: 18:16 Distant Suicide Severity Screening: In the past month, have you wished you were tr6 or wished you could go to sleep and not wake up? Patient responds "yes." Based off the client's responses additional C-SSRS screening is required. "In the past month, have you actually had any thoughts of killing yourself?" Patient responds "yes." Based off the client's response additional Distant suicide severity screening questions to be further documented on paper forms. "In your lifetime, have you ever done anything, started to do anything, or prepared to do anything to end your life?" Patient responds "yes." Patient reports suicidal intent within 3 past months. pt states that he has felt as though he should walk in to the street and get hit by a car, but then thinks that he shouldn't because he realizes that it will hurt and if he is not successful then he will live with those injuries forever. Subjective: Patient's mood is flat Delusions are paranoid Hallucinations are visual, Having thoughts of paranoid thoughts. Objective: Patient is cooperative, defensive, using poor eye contact, Speech is normal, Affect is flat. Interventions: Removed personal items and placed in bag. Safety Checks: Personal items have been removed. Door is open. No visitors are present at this time. Vital Signs: 17:00 BP 129 / 101; Pulse 77; Resp 16; Temp 98.6; Pulse Ox 97% ; Weight 58.97 kg; Height 5 ll1 ft. 6 in. (167.64 cm); Pain 0/10; 17:00 Body Mass Index 20.98 (58.97 kg, 167.64 cm) ll1 ED Course: 16:54 Patient arrived in ED. ds1 17:06 Triage completed. ll1 17:06 Arm band placed on. ll1 17:23 Casandra Collazo, RN is Primary Nurse. sv 17:24 Patient has correct armband on for positive identification. Bed in low position. Call sv light in reach. Head of bed elevated. 17:39 Femi Denson PA is PHCP. jr8 17:39 Bharat Leon MD is Attending Physician. jr8 17:40 Nurse Practitioner and/or Physician [employer] Manager to see patient. sv 17:55 Resting quietly. Safety Checks: Personal items have been removed. The door is open or tr6 patient has been placed in a hallway bed/chair. There are no family/friend visitors at this time Sitter not present at this time. 17:55 No provider procedures requiring assistance completed. tr6 18:16 Inserted saline lock: 18 gauge in left forearm, using aseptic technique. tr6 18:36 IV discontinued, intact, Pt removed his IV. sv Administered Medications: 18:27 Drug: HALdol (haloperidol) 5 mg Route: IVP; Site: left forearm; tr6 Outcome: 18:36 Eloped from patient exam room, after seeing physician Time discovered patient gone: sv September 16, 2020 at 18:36 18:36 Condition: stable 18:37 Patient left the ED. sv Signatures: Casandra Collazo, RN RN Mariposa Barkley ds1 Femi Denson PA PA jr8 Lyndsay Casas RN RN 1 Tara Ferrera RN RN tr6
[2020-09-16 18:39] LABS: ALT/SGPT 29 U/L (12-78); AST/SGOT 30 U/L (15-37); Albumin 4.5 g/dL (3.4-5.0); Alkaline Phosphatase 73 U/L (45-117); BUN Blood Urea Nitrogen 15 mg/dL (7-18); Bicarbonate 27 mmol/L (21-32); Bilirubin Direct 0.3 mg/dL (0-0.2); Bilirubin Total 1.4 mg/dL (0.2-1.0); Glucose Level 75 mg/dL (74-106); Potassium 4.1 mmol/L (3.5-5.1); Protein, Total 8.1 g/dL (6.4-8.2); Sodium Level 138 mmol/L (136-145)
[2020-09-16 18:54] VITALS: BP 129/101; TEMP 98.6; O2SAT 97
--- NOTE | 2020-09-17 10:26 | EKG ---
Test Date: 2020-09-16 Test Time: 18:25:28 Choral Director: DYLAN MEASUREMENT RESULTS: Intervals: Rate: 67 CT: 134 QRSD: 96 QT: 416 QTc: 439 [place]: P: 78 CT: 134 QRS: 72 T: 31 INTERPRETIVE STATEMENTS: Normal sinus rhythm Possible Left atrial enlargement Borderline ECG Compared to ECG 02/14/2019 12:57:56 No significant changes Electronically Signed On 09-17-20 10:25:36 CDT by Simone Rich
--- NOTE | 2020-09-17 18:37 | EDPHYS ---
Physician Documentation [facility] Name: Cholo Salcido Jr Age: 40 yrs Sex: Male : 1980 Arrival Date: 09/16/2020 Time: 16:54 Bed 8 Private MD: ED Physician Bharat Leon HPI: 09/16 18:42 This 40 yrs old Male presents to ER via Ambulatory with complaints of Psych jr8 Problem. 18:42 The patient presents to the emergency department with paranoia. Onset: The jr8 symptoms/episode began/occurred gradually. Past psychiatric history: Prior diagnosis: schizophrenia, Psychiatric medications include: none, Primary psychiatric physician: the patient does not have a primary psychiatric physician. Associated signs and symptoms: The patient has no apparent associated signs or symptoms. Severity of symptoms: At their worst the symptoms were mild in the emergency department the symptoms are unchanged. It is unknown whether or not the patient has had similar symptoms in the past. The patient has not recently seen a physician. Patient stated that he has had paranoia and agitation for some time. Was getting worse and wanted help. Historical: - Allergies: 17:06 No Known Allergies; ll1 - PMHx: 17:06 Schizophrenia; Seizures; resolved now; Pneumonia; Anxiety; synthetic marajuana; states ll1 no longer uses; - PSHx: 17:06 None; ll1 - Immunization history:: Flu vaccine is not up to date. - Social history:: Smoking status: Patient/guardian denies using tobacco, Stopped _ months ago .2. ROS: 18:42 Eyes: Negative for injury, pain, redness, and discharge, ENT: Negative for injury, jr8 pain, and discharge, Neck: Negative for injury, pain, and swelling, Cardiovascular: Negative for chest pain, palpitations, and edema, Respiratory: Negative for shortness of breath, cough, wheezing, and pleuritic chest pain, Abdomen/GI: Negative for abdominal pain, nausea, vomiting, diarrhea, and constipation, Back: Negative for injury and pain, MS/Extremity: Negative for injury and deformity, Skin: Negative for injury, rash, and discoloration, Neuro: Negative for headache, weakness, numbness, tingling, and seizure. 18:42 Psych: Positive for auditory hallucinations, visual hallucinations, suicidal ideation, Negative for suicide gesture. Exam: 18:42 Constitutional: This is a well developed, well nourished patient who is awake, alert, jr8 and in no acute distress. Cardiovascular: Regular rate and rhythm with a normal S1 and S2. No gallops, murmurs, or rubs. Normal PMI, no JVD. No pulse deficits. Respiratory: Lungs have equal breath sounds bilaterally, clear to auscultation and percussion. No rales, rhonchi or wheezes noted. No increased work of breathing, no retractions or nasal flaring. Abdomen/GI: Soft, non-tender, with normal bowel sounds. No distension or tympany. No guarding or rebound. No evidence of tenderness throughout. Skin: Warm, dry with normal turgor. Normal color with no rashes, no lesions, and no evidence of cellulitis. MS/ Extremity: Pulses equal, no cyanosis. Neurovascular intact. Full, normal range of motion. Neuro: Awake and alert, GCS 15, oriented to person, place, time, and situation. Cranial nerves II-XII grossly intact. Motor strength 5/5 in all extremities. Sensory grossly intact. Cerebellar exam normal. Normal gait. 18:42 Psych: Behavior/mood is cooperative, Affect is flat, Oriented to person, place, time, Patient having thoughts of suicide. Denies suicidal plan. Judgement / Insight is impaired. Memory is normal. Delusions/hallucinations are present and described as Stated that he will hear or see things and that he feels the people are out to get him. Sometimes realizes that they really are not there. Talks about microwave radiation and cell phone poising . Vital Signs: 17:00 BP 129 / 101; Pulse 77; Resp 16; Temp 98.6; Pulse Ox 97% ; Weight 58.97 kg; Height 5 ll1 ft. 6 in. (167.64 cm); Pain 0/10; 17:00 Body Mass Index 20.98 (58.97 kg, 167.64 cm) ll1 MDM: 17:39 Patient medically screened. jr8 18:42 Data reviewed: vital signs, nurses notes, lab test result(s). Data interpreted: Pulse jr8 oximetry: on room air is 97 %. Interpretation: normal. Counseling: I had a detailed discussion with the patient and/or guardian regarding: the historical points, exam findings, and any diagnostic results supporting the discharge/admit diagnosis, lab results. 18:45 ED course: Patient eloped for unknown reason after being evaluated and seen. Initially jrReno wanted help and to be transferred to psych facility. 09/16 17:52 Order name: Acetaminophen [facility] 09/16 17:52 Order name: Basic Metabolic Panel [facility] 09/16 17:52 Order name: CBC with Diff [facility] 09/16 17:52 Order name: ETOH Level [facility] 09/16 17:52 Order name: Hepatic Function [facility] 09/16 17:52 Order name: PT-INR [facility] 09/16 17:52 Order name: Ptt, Activated [facility] 09/16 17:52 Order name: Salicylate [facility] 09/16 17:52 Order name: EKG; Complete Time: 17:53 [facility] 09/16 17:52 Order name: IV Saline Lock; Complete Time: 18:12 [facility] 09/16 17:52 Order name: Labs collected and sent; Complete Time: 18:12 [facility] 09/16 17:52 Order name: Suicide Screening ([facility]); Complete Time: 17:56 [facility] Administered Medications: 18:27 Drug: HALdol (haloperidol) 5 mg Route: IVP; Site: left forearm; tr6 Disposition Summary: 09/16/20 18:37 Eloped Disposition: after being seen by provider sv Reason: unknown sv Addendum: 09/19/2020 13:51 Co-signature as Attending Physician, Bharat Leon MD I agree with the assessment and k dr plan of care. Signatures: Dispatcher [employer] Casandra Mirza RN Bharat Smith MD MD kdr Roszak, Josh, PA PA jr8 Lyndsay Casas RN RN ll1 Tara Ferrera RN RN tr6
== END 2020-09-16 18:37 | disposition left against medical advice (07) ==
LOC: ER 16:53
DX: F20.9 Schizophrenia, unspecified (principal)
CPT/HCPCS: 93005; 85025; 80048; 36415; 80320; 80329 ×2; 85610; 80076; 85730; 96374; 99284; J1630; J7030

== ENCOUNTER 2022-06-07 21:57 | Emergency (ER) | payer OTHER ==
--- NOTE | 2022-06-07 22:28 | ER ---
Nurse's Notes [facility] Name: Cholo Salcido Jr Age: 42 yrs Sex: Male : 1980 Arrival Date: 06/07/2022 Time: 22:04 Bed IW1 Private MD: Diagnosis: Encounter for examination and observation for unspecified reason Presentation: 06/07 22:21 Chief complaint: Patient states: "I woke up and fell asleep with my ear buds in my ear. vc1 I was afraid the plastic piece fell off because it was missing.". Coronavirus screen: Vaccine status: Patient reports being unvaccinated. Client denies travel out of the [place] in the last 14 days. At this time, the client does not indicate any symptoms associated with coronavirus-19. Ebola Screen: Patient negative for fever greater than or equal to 101.5 degrees Fahrenheit, and additional compatible Ebola Virus Disease symptoms Patient denies exposure to infectious person. Patient denies travel to an Ebola-affected area in the 21 days before illness onset. No symptoms or risks identified at this time. Initial Sepsis Screen: Does the patient meet any 2 criteria? No. Patient's initial sepsis screen is negative. Does the patient have a suspected source of infection? No. Patient's initial sepsis screen is negative. Risk Assessment: Do you want to hurt yourself or someone else? Patient reports no desire to harm self or others. Onset of symptoms was June 07, 2022. 22:21 Method Of Arrival: Ambulatory vc1 22:21 Acuity: BAM 5 vc1 Triage Assessment: 22:24 General: Appears in no apparent distress. comfortable, Behavior is calm, cooperative, vc1 appropriate for age. Pain: Denies pain. EENT: Reports something in ear. Neuro: No deficits noted. Cardiovascular: No deficits noted. Respiratory: Airway is patent Respiratory effort is even, unlabored, Respiratory pattern is regular, symmetrical. GI: No deficits noted. No signs and/or symptoms were reported involving the gastrointestinal system. : No deficits noted. No signs and/or symptoms were reported regarding the genitourinary system. Derm: No deficits noted. No signs and/or symptoms reported regarding the dermatologic system. Musculoskeletal: No deficits noted. No signs and/or symptoms reported regarding the musculoskeletal system. Historical: - Allergies: 22:24 No Known Allergies; vc1 - Home Meds: 22:24 None [Active]; vc1 - PMHx: 22:24 Anxiety; Pneumonia; Schizophrenia; Seizures; resolved now; vc1 - PSHx: 22:24 None; vc1 - Immunization history:: Client reports having NOT received the Covid vaccine. - Social history:: Smoking status: Patient denies any tobacco usage or history of. Screenin:25 [facility] ED Fall Risk Assessment (Adult) History of falling in the last 3 months, vc1 including since admission No falls in past 3 months (0 pts) Confusion or Disorientation No (0 pts) Intoxicated or Sedated No (0 pts) Impaired Gait No (0 pts) Mobility Assist Device Used No (0 pt) Altered Elimination No (0 pt) Score/Fall Risk Level 0 - 2 = Low Risk Oriented to surroundings, Maintained a safe environment, Educated pt \\T\\ family on fall prevention, incl call for assistance when getting out of bed. Abuse screen: Denies threats or abuse. Nutritional screening: No deficits noted. Tuberculosis screening: No symptoms or risk factors identified. Vital Signs: 22:21 BP 111 / 94; Pulse 78; Resp 16; Temp 97.7; Pulse Ox 100% ; Weight 61.23 kg; Height 5 vc1 ft. 6 in. ; Pain 0/10; 22:21 Body Mass Index 21.79 (61.23 kg, 167.64 cm) vc1 22:21 Pain Scale: Adult vc1 ED Course: 22:04 Patient arrived in ED. es 22:05 Danny Chacon MD is Attending Physician. rn 22:05 Isma Damon PA is PHCP. cp 22:24 Triage completed. vc1 22:25 Arm band placed on left wrist. vc1 22:25 No provider procedures requiring assistance completed. Patient did not have IV access vc1 during this emergency room visit. 22:26 seen in triage. vc1 Administered Medications: No medications were administered Medication: 22:26 VIS not applicable for this client. vc1 Outcome: 22:27 Discharge ordered by . cp 22:30 Discharged to home ambulatory. vc1 22:30 Condition: good 22:30 Discharge instructions given to patient, Instructed on discharge instructions, follow up and referral plans. Demonstrated understanding of instructions, follow-up care. 22:30 Patient left the ED. vc1 Signatures: Laurie Travis Roman, MD MD rn Isma Damon PA PA cp Calcote, Vanessa, RN RN vc1 Corrections: (The following items were deleted from the chart) :24 22:24 PMHx: synthetic marajuana; states no longer uses; vc1 vc1
--- NOTE | 2022-06-07 22:28 | EDPHYS ---
Physician Documentation [facility] Name: Cholo Salcido Jr Age: 42 yrs Sex: Male : 1980 Arrival Date: 06/07/2022 Time: 22:04 Bed IW1 Private MD: ED Physician Danny Chacon HPI: 06/07 22:20 This 42 yrs old Male presents to ER via Unassigned with complaints of Possible cp Foreign Body In Ear. 22:20 The patient presents with possible foreign body. The complaints affect the right ear. cp Onset: The symptoms/episode began/occurred today, upon awakening. Patient reports awakening with plastic ear moreira missing from ear bud. Concerned tip may be in ear canal. No pain. Historical: - Allergies: 22:24 No Known Allergies; vc1 - Home Meds: 22:24 None [Active]; vc1 - PMHx: 22:24 Anxiety; Pneumonia; Schizophrenia; Seizures; resolved now; vc1 - PSHx: 22:24 None; vc1 - Immunization history:: Client reports having NOT received the Covid vaccine. - Social history:: Smoking status: Patient denies any tobacco usage or history of. ROS: 22:21 Constitutional: Negative for fever, poor PO intake. cp 22:21 ENT: Positive for possible foreign body right ear canal, Negative for drainage from ear(s), ear pain, sore throat, difficulty swallowing, difficulty handling secretions. 22:21 Respiratory: Negative for cough, shortness of breath, wheezing. 22:21 Neuro: Negative for headache, weakness. 22:21 All other systems are negative. Exam: 22:23 Constitutional: The patient appears in no acute distress, alert, awake, comfortable, cp non-toxic, well developed, well nourished. 22:23 Head/Face: Normocephalic, atraumatic. cp 22:23 Eyes: Periorbital structures: appear normal, Conjunctiva: normal, no exudate, no injection, Lids and lashes: appear normal, bilaterally. 22:23 ENT: External ear(s): are unremarkable, Ear canal(s): cerumen impaction, is not appreciated, foreign body, is not appreciated, swelling, is not appreciated, mild cerumen noted bilateral ear canals, TM's: dullness, bilaterally. 22:23 Chest/axilla: Inspection: normal. 22:23 Cardiovascular: Rate: normal. 22:23 Respiratory: the patient does not display signs of respiratory distress, Respirations: normal. Vital Signs: 22:21 BP 111 / 94; Pulse 78; Resp 16; Temp 97.7; Pulse Ox 100% ; Weight 61.23 kg; Height 5 vc1 ft. 6 in. ; Pain 0/10; 22:21 Body Mass Index 21.79 (61.23 kg, 167.64 cm) vc1 22:21 Pain Scale: Adult vc1 MDM: 22:05 Patient medically screened. rn 22:25 Differential diagnosis: otitis media, otitis externa, ruptured TM, foreign body, acute cp otalgia, cerumen impaction, barotrauma . Data reviewed: vital signs, nurses notes. Counseling: I had a detailed discussion with the patient and/or guardian regarding: the historical points, exam findings, and any diagnostic results supporting the discharge/admit diagnosis, to return to the emergency department if symptoms worsen or persist or if there are any questions or concerns that arise at home. Administered Medications: No medications were administered Disposition: 23:52 Co-signature as Attending Physician, Danny Chacon MD I reviewed the patient's care rn provided by the Advanced Practice Provider and agree with the diagnosis and treatment plan. Disposition Summary: 06/07/22 22:27 Discharge Ordered Location: Home cp Problem: new cp Symptoms: have improved cp Condition: Stable cp Diagnosis - Encounter for examination and observation for unspecified reason cp Followup: cp - With: Emergency Department - When: As needed - Reason: Worsening of condition Discharge Instructions: - Discharge Summary Sheet cp - Earwax Buildup, Adult cp Forms: - Medication Reconciliation Form cp - Thank You Letter cp - Antibiotic Education cp - Prescription Opioid Use cp Signatures: Danny Chacon MD MD rn Page, Corey, PA PA cp Calcote, Vanessa, RN RN vc1 Corrections: (The following items were deleted from the chart) 22:24 22:24 PMHx: synthetic marajuana; states no longer uses; vc1 vc1
[2022-06-07 22:35] VITALS: BP 111/94; TEMP 97.7; O2SAT 100
== END 2022-06-07 22:30 | disposition home or self-care (01) ==
LOC: ER 21:57
DX: Z71.1 Person with feared health complaint in whom no diagnosis is made (principal)
CPT/HCPCS: 99281